=== PATIENT | male | born 1955 | race Caucasian/White ===

== ENCOUNTER 2017-02-19 07:10 | Emergency (ER) | payer OTHER ==
[2017-02-19 07:25] VITALS: BP 134/65
--- NOTE | 2017-02-19 07:54 | RAD ---
INDICATION: Right wrist injury. TECHNIQUE: 3 views of the right wrist were obtained. FINDINGS: The bones are in normal alignment. There are several small well-defined calcific densities present along the medial aspect of the wrist likely representing old fracture fragments or soft tissue calcifications. No acute fracture is seen. IMPRESSION: NO EVIDENCE FOR ACUTE FRACTURE, IF THE PATIENT'S SYMPTOMS PERSIST, RECOMMEND FOLLOW-UP IMAGING.
--- NOTE | 2017-02-19 07:57 | RAD ---
INDICATION: Right hand injury. TECHNIQUE: 2 views of the right hand were obtained. FINDINGS: The bones are in normal alignment. No fracture is seen. Joint spaces appear maintained. IMPRESSION: NO EVIDENCE FOR ACUTE FRACTURE.
--- NOTE | 2017-02-19 09:25 | UC ---
Hand/Wrist HPI - HPI Summary HPI Summary: pt was walking to the mail box this morning when his foot slipped on a rock and fell on a outstretched right hand. He rates pain as 5/10 ache, nonradiating. No n/w/t. Denies hitting his head or pain anywhere else. Denies any other new sx. - History Of Current Complaint Chief Complaint: UCUpperExtremity Stated Complaint: LEFT HAND INJ Time Seen by Provider: 02/19/17 07:24 Hx Obtained From: Patient Onset/Duration: Sudden Onset, Lasting Hours, Still Present Severity Initially: Moderate Severity Currently: Moderate Pain Intensity: 5 Character Of Pain: Aching Aggravating Factor(s): Movement, Other - touch Alleviating Factor(s): Rest, Elevation Associated Signs And Symptoms: Positive: Swelling, Bruising. Negative: Redness , Fever, Weakness, Numbness/Tingling - Allergies/Home Medications Allergies/Adverse Reactions: Allergies Allergy/AdvReac Type Severity Reaction Status Date / Time No Known Allergies Allergy Verified 02/19/17 07:25 Home Medications: Home Medications Lisinopril/HCTZ (NF) [Zestoretic (NF)] 1 tab PO DAILY 02/19/17 [ History Confirmed 02/19/17] Methadone TAB* [Dolophine TAB*] 5 mg PO TID 02/19/17 [History Confirmed 02/19/17 ] Warfarin TAB(*) [Coumadin TAB(*)] 9 mg PO DAILY 02/19/17 [History Confirmed ] traZODone TAB* [Desyrel TAB*] 50 mg PO BEDTIME 02/19/17 [History Confirmed 02/19] PMH/Surg Hx/FS Hx/Imm Hx Cardiovascular History: Hypertension, Deep Vein Thrombosis Respiratory History: COPD Other History Of: Negative For: HIV, Hepatitis B, Hepatitis C, Anticoagulant Therapy - Surgical History Surgical History: Yes Surgery Procedure, Year, and Place: Intestinal Perforation Repair, 07/31/14, [facility]. gastric bypass 2001. bilateral shoulders RTC AND TENDON REPAIR. CATARACT REPAIR - Family History Known Family History: Positive: Cardiac Disease, Hypertension, Diabetes - Social History Occupation: Retired Lives: With Family Alcohol Use: None Substance Use Type: None Smoking Status (MU): Heavy Every Day Tobacco Smoker Type: Cigarettes Amount Used/How Often: 1 PPD Length of Time of Smoking/Using Tobacco: 43 Years Have You Smoked in the Last Year: Yes When Did the Patient Quit Smoking/Using Tobacco: 07/30/14 Household Exposure Type: Cigarettes Cessation Counseling: Patient Advised to Stop - Immunization History Most Recent Influenza Vaccination: Not the Season Most Recent Tetanus Shot: 07/27/14 Review of Systems Constitutional: Negative Skin: Bruising Respiratory: Negative Cardiovascular: Negative Musculoskeletal: Other: - hand and wrist injury/pain Neurological: Negative All Other Systems Reviewed And Are Negative: Yes Physical Exam Triage Information Reviewed: Yes Appearance: Well-Appearing, No Pain Distress, Obese Vital Signs: Initial Vital Signs Temp 98.5 F 02/19/17 07:17 Pulse 64 02/19/17 07:17 Resp 16 02/19/17 07:17 BP 134/65 02/19/17 07:17 Pulse Ox 100 02/19/17 07:17 Vital Signs Reviewed: Yes Eyes: Positive: Conjunctiva Clear. Negative: Discharge ENT: Positive: Hearing grossly normal. Negative: Muffled voice, Hoarse voice Neck exam: Normal Respiratory: Positive: Lungs clear, Normal breath sounds Cardiovascular: Positive: RRR, No Murmur Musculoskeletal: Positive: Other: - swelling and bruising, tender carpals( including snuff box), dis ulna/rad, metatarsals 2-4, prox phalanx 3 Neurological: Positive: Alert, Muscle Tone Normal Psychological: Positive: Age Appropriate Behavior Skin: Positive: Other - bruising on rt hand Hand/Wrist Course/Dx - Differential Dx/Diagnosis Differential Diagnosis/HQI/PQRI: Contusion, Fracture, Sprain, Strain Provider Diagnoses: wrist injury, r/o snuff box fx Discharge - Discharge Plan Condition: Stable Disposition: HOME Patient Education Materials: Wrist Injury (ED), Contusion in Adults (ED), Splint Care (ED), Suspected Fracture (ED) Referrals: Khris Kohler MD [Medical Doctor] - (FOLLOW UP IN 5-7 DAYS) Katie Davalos MD [Primary Care Provider] - If Needed Additional Instructions: Your history and exam is suspicous for possible occult fracture of the scaphoid bone. This is a fracture that can have a bad outcome if not properly immobilized. So, we will treat this as a fracture until proven otherwise. That means that you must wear the splint 24 hours a day until the ortho provider tells you otherwise. It will take 5-7 days to establish whether or not your bone is fractured.
== END 2017-02-19 08:25 | disposition home or self-care (01) ==
LOC: UCCORT 07:10
DX: S69.91XA Unspecified injury of right wrist, hand and finger(s), initial encounter (principal); S60.221A Contusion of right hand, initial encounter; W01.0XXA Fall on same level from slipping, tripping and stumbling without subsequent striking against object, initial encounter; Y93.01 Activity, walking, marching and hiking; Y92.89 Other specified places as the place of occurrence of the external cause; I10 Essential (primary) hypertension; Z86.718 Personal history of other venous thrombosis and embolism; Z79.01 Long term (current) use of anticoagulants; J44.9 Chronic obstructive pulmonary disease, unspecified; Z98.84 Bariatric surgery status; E66.9 Obesity, unspecified; F17.210 Nicotine dependence, cigarettes, uncomplicated
CPT/HCPCS: 99212; G0463

== ENCOUNTER 2017-07-05 07:02 | Emergency (ER) | payer OTHER ==
[2017-07-05 07:19] VITALS: BP 137/58
--- NOTE | 2017-07-05 07:28 | UC ---
Throat Pain/Nasal Saroj HPI - HPI Summary HPI Summary: Sore throat, cough, congestion, right sinus pressure, right ear pressure for about three days. No fever. there is some yellow and green production. - History of Current Complaint Chief Complaint: UCRespiratory Stated Complaint: ST/EAR COMPLAINT Time Seen by Provider: 07/05/17 07:19 Hx Obtained From: Patient Onset/Duration: Gradual Onset, Lasting Days Severity: Moderate Pain Intensity: 0 Cough: Productive Associated Signs & Symptoms: Positive: Dysphagia, Sinus Discomfort. Negative: Fever, Vomiting, Rash - Allergies/Home Medications Allergies/Adverse Reactions: Allergies Allergy/AdvReac Type Severity Reaction Status Date / Time No Known Allergies Allergy Verified 07/05/17 07:10 PMH/Surg Hx/FS Hx/Imm Hx Previously Healthy: No - denies dm. Other History Of: Negative For: HIV, Hepatitis B, Hepatitis C, Anticoagulant Therapy - Surgical History Surgical History: Yes Surgery Procedure, Year, and Place: Intestinal Perforation Repair, 07/31/14, [facility]. gastric bypass 2001. bilateral shoulders RTC AND TENDON REPAIR. CATARACT REPAIR - Family History Known Family History: Positive: Cardiac Disease, Hypertension, Diabetes - Social History Alcohol Use: None Substance Use Type: None Smoking Status (MU): Former Smoker Type: Cigarettes Amount Used/How Often: 1 PPD Length of Time of Smoking/Using Tobacco: 43 Years Have You Smoked in the Last Year: Yes When Did the Patient Quit Smoking/Using Tobacco: 03/20/17 Household Exposure Type: Cigarettes - Immunization History Most Recent Influenza Vaccination: Not the 2014/2015 Season Most Recent Tetanus Shot: 07/27/14 Review of Systems ENT: Sore Throat, Sinus Congestion All Other Systems Reviewed And Are Negative: Yes Physical Exam Triage Information Reviewed: Yes Appearance: Well-Appearing, No Pain Distress, Well-Nourished Vital Signs: Initial Vital Signs Temp 99.4 F 07/05/17 07:11 Pulse 75 07/05/17 07:11 Resp 20 07/05/17 07:11 BP 137/58 07/05/17 07:11 Pulse Ox 98 07/05/17 07:11 Vital Signs Reviewed: Yes Eyes: Positive: Conjunctiva Clear. Negative: Conjunctiva Inflamed ENT: Positive: Hearing grossly normal, Pharyngeal erythema, Nasal congestion, TMs normal, Hoarse voice, Uvula midline. Negative: Nasal drainage, TM bulging, TM dull, TM red, Tonsillar swelling, Tonsillar exudate, Trismus, Muffled voice, Sinus tenderness Neck: Positive: Supple, Nontender, No Lymphadenopathy Respiratory: Positive: Lungs clear, Normal breath sounds, No respiratory distress, No accessory muscle use. Negative: Respiratory distress, Decreased breath sounds, Accessory muscle use, Crackles, Rhonchi, Stridor, Wheezing Cardiovascular: Positive: No Murmur, Pulses Normal, Brisk Capillary Refill Abdomen Description: Positive: Soft. Negative: Distended, Guarding Musculoskeletal: Positive: ROM Intact, No Edema Neurological: Positive: Alert, Muscle Tone Normal. Negative: Fatigued Psychological: Positive: Age Appropriate Behavior Skin: Negative: rashes Throat Pain/Nasal Course/Dx - Course Assessment/Plan: he will hold on to amoxacillin for 6 more days before trying it. He will focus on decongestants first. - Differential Dx/Diagnosis Provider Diagnoses: viral uri Discharge - Sign-Out/Discharge Documenting (check all that apply): Discharge - Discharge Plan Condition: Good Disposition: HOME Prescriptions: Amoxicillin PO (*) [Amoxicillin 875 MG (*)] 875 mg PO BID #20 tab Patient Education Materials: Upper Respiratory Infection (ED) Referrals: Jamir Botello [Primary Care Provider] - - Billing Disposition and Condition Condition: GOOD Disposition: HOME
== END 2017-07-05 07:30 | disposition home or self-care (01) ==
LOC: UCCORT 07:02
DX: J06.9 Acute upper respiratory infection, unspecified (principal)
CPT/HCPCS: 99212; G0463

== ENCOUNTER 2017-09-14 08:00 | Inpatient (IN) | payer OTHER ==
--- NOTE | 2017-09-04 10:32 | HP ---
HISTORY AND PHYSICAL: DATE OF SURGERY: 09/14/17 DATE OF OFFICE VISIT: 09/04/17 SURGEON: Lo Oliva MD * (DICTATED BY DANNI MEJIA) PROCEDURE: Left total knee arthroplasty. CHIEF COMPLAINT: Left knee pain. HISTORY OF PRESENT ILLNESS: Mr. Nazario is a 62-year-old gentleman with end- stage osteoarthritis of the left knee. He has failed conservative management and elected to proceed with a left total knee arthroplasty, which is scheduled for 09/14/[address] Oliva. PAST MEDICAL HISTORY: 1. AFib. 2. Hypertension. 3. DVT. 4. Chronic pain. 5. Prior stroke. 6. Obesity. 7. Sleep apnea. PAST SURGICAL HISTORY: 1. Gastric bypass 2. Bilateral shoulder arthroscopies and cataract removal. CURRENT MEDICATIONS: 1. Lisinopril/hydrochlorothiazide 20/25 mg daily. 2. Warfarin sodium. 3. Methadone 5 mg. 4. Lactulose. 5. Trazodone 50 mg q.h.s. ALLERGIES: None. FAMILY HISTORY: Diabetes, coronary artery, hypertension, stroke, cancer, and Alzheimer's. SOCIAL HISTORY: He is a 62-year-old gentleman, lives with his and children. He smokes half a pack a day. Denies use of drugs and alcohol. REVIEW OF SYSTEMS: A complete 14-point of review of systems is reviewed with the patient, it was positive for history of stroke and DVT. The last DVT was approximately 3 years ago. He denies a history of hepatitis, HIV, or anesthesia problems. PHYSICAL EXAMINATION GENERAL: He is well developed, well nourished, in no acute distress. VITAL SIGNS: He stands 72 inches tall, weighs 320 pounds. Blood pressure is 118/70, heart rate is 60. HEENT: Normocephalic, atraumatic. NECK: Supple. No palpable lymph nodes. PULMONARY: Lungs are clear to auscultation bilaterally. CARDIO: Regular rate and rhythm. Strong S1, S2. ABDOMEN: Soft, nontender, and nondistended. NEUROLOGIC: He is alert and oriented x3. Cranial nerves II through XII are intact. MUSCULOSKELETAL: Left lower extremity, the skin is intact. There are no open wounds or abrasions. There is some moderate joint effusion. Range of motions 10 to 125 degrees of flexion. There is a varus deformity. 5/5 lower extremity strength. 2+ dorsalis pedis pulses and intact sensation. ASSESSMENT AND PLAN: Mr. Nazario is a 62-year-old gentleman with complaints of left knee pain secondary to end-stage osteoarthritis. He has failed conservative management and elected to proceed with a left total knee arthroplasty, the surgery is scheduled for 09/14/[address] Oliva discussed the risks and benefits of the surgery at today's visit and all his questions were answered. He will follow with Dr. Oliva in weeks after the surgery. Dr. Oliva has instructed him to stop his Coumadin on 09/07/17. He will start Lovenox injection 40 mg subcu daily, starting on 09/09/17. His last dose of Lovenox will be 09/12/17 and the surgery is scheduled for 09/14/17. DANNI MEJIA [id number]/[facility] #: [id number] [facility] HEALTH NETWORKDanie
[~2017-09-14 08:00] MED LIST: Buffered Lidocaine 0.9% SYRIN* 5 ML/SYR SYRINGE INTRADERM ONE; Dexamethasone TAB* 4 MG PO ONE; DiMENhydriNATE IV* 50 MG/ML VIAL IV PUSH PRN; Famotidine IV* 10 MG/ML 2 ML (20 mg) IV ONE; Gabapentin CAP(*) 300 MG PO ONE; HYDROmorphone INJ* 1 MG/ML CARPUJECT SYRINGE IV PRN; Naloxone* 0.4 MG/ML 1 ML VIAL IV PRN; Ondansetron INJ* 2 MG/ML VIAL ONE; PROCHLORPERAZINE INJ 5 MG/ML 2 ML VIAL IV PRN
--- OUTSIDE RECORDS SUMMARY | 2017-09-14 08:04 | XMS REPORT ---
:1955 External Reference #:[id number] Author Organization [employer] Address [address] [place] [address] [place] [address] Phone [phone] Care Team Providers Name Role Phone Jamir Botello PA-C Primary Care Physician Unavailable Payers Type Date Identification Numbers Payment Provider Subscriber Commercial Expires: Policy Number: [id number] RatifyShaquille Vane Dwyerclaudiatoyindelroy 2016 PayID: [employer] [address] [place] [address] Commercial Policy Number: [id number] Lif[employer]it [employer] Vane Nazario PayID: [facility] [address] [place] [address] Problems Date Description Provider Status Onset: 07/18/2016 Disorder of lung Serena Ellis MD Active Onset: 07/18/2016 Dyspnea Serena Ellis MD Active Onset: 08/09/2017 Localized, primary osteoarthritis Lo Oliva M.D. Active Social History Type Date Description Comments Marital Status Lives With Spouse Occupation Disabled ETOH Use Denies alcohol use Smoking Patient is a current smoker, smokes every day Recreational Drug Use Denies Drug Use Exercise Type/Frequency Exercises regularly Allergies, Adverse Reactions, Alerts Date Description Reaction Status Severity Comments 09/04/2017 NKDA active Medications Medication Date Status Form Strength Qnty SIG Indications Ordering Provider Lovenox Active Solution 40mg/0.4ML 12ml sub Q Lo 018 once a Pj, day for 4 M.D. days ( 09/09-09/12 ) Trazadone Active Lo 50MG 018 Seth Oliva Lisinopril-Hy Active Tablets 20-25mg 1 tablet Serena drochlorothia 017 daily MD Caleb zide Amlodipine Active Tablets 5mg 30tabs 1 by Serena Besylate 017 mouth MD Caleb every day Furosemide Active Tablets 40mg 1 tablet Serena 017 daily MD Caleb Warfarin Active Tablets 10mg 1 tablet Serena Sodium 017 at night MD Caleb Methadone 5MG Active Unknown 000 Lactulose Active Unknown 000 Vital Signs Date Vital Result Comment 09/04/2017 Height 72 inches 6'0" Weight 320.00 lb Heart Rate 76 /min BP Systolic 118 mmHg BP Diastolic 70 mmHg BMI (Body Mass Index) 43.4 kg/m2 07/18/2016 Height 72 inches 6'0" Weight 347.00 lb Heart Rate 72 /min BP Systolic 125 mmHg BP Diastolic 70 mmHg Body Temperature 98.0 F O2 % BldC Oximetry 97 % BMI (Body Mass Index) 47.1 kg/m2 Results Test Date Test Result H/L Range Note Laboratory test finding 07/28/2016 Point of Care Glucose 89 mg/dL 74-106 1 1 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 64658 M17.0 C.M.A. M21.162 E66.01 M25.561 M25.562 M25.461 M25.462 Office Visit 07/18/2016 7:30a [facility] [address] J98.4 [facility] R06.02 G47.33 F17.210 E66.01 Z68.42 Plan of Care Future Appointment(s):09/29/2017 8:15 am - Lo Oliva M.D. at [facility]..09/14/2017 2:30 pm - Aj Miller PA-C at [facility]..09/14/2017 2:30 pm - DANNI Ruelas at [facility]..09/14/2017 2:30 pm - Lo Oliva M.D. at [facility]..09/22/2017 8:00 am - Lo Oliva M.D. at [facility]..09/04/2017 - Lo Oliva M.D.M17.0 Bilateral primary osteoarthritis of kneeFollow up:Follow up: 2 weeks after nrzlwrrY57.462 Effusion, left kneeM25.562 Pain in left knee
[2017-09-14] MEDS ORDERED: Gabapentin CAP(*) 300 MG ONE (08:11)
[2017-09-14] MEDS ORDERED: Ondansetron ODT TAB* 4 MG ONE (08:11)
[2017-09-14] MEDS ORDERED: Famotidine IV* 10 MG/ML 2 ML (20 mg) ONE (08:11)
[2017-09-14] MEDS ORDERED: ceFAZolin 2 GM PREMIX (*) 2 GM/50 ML BAG IVPB ONE (08:12)
[2017-09-14] MEDS ORDERED: ceFAZolin 1 GM in Dextrose (*) 1 GM/50 ML BAG IVPB ONE (08:12)
[2017-09-14] MEDS ORDERED: Dexamethasone TAB* 4 MG ONE (08:12)
[2017-09-14] MEDS ORDERED: Buffered Lidocaine 0.9% SYRIN* 5 ML/SYR SYRINGE ONE (08:12)
[2017-09-14] MEDS ORDERED: fentaNYL* 50 MCG/ML 5 ML VIAL (250 MCG VIAL) ONE ×2 (08:29→10:38)
[2017-09-14] MEDS ORDERED: Midazolam* 1 MG/ML 10 ML VIAL (10 MG) ONE (08:29)
[2017-09-14 09:06] LABS: INR 0.98 (0.77-1.02)
[2017-09-14] MEDS ORDERED: Atracurium* 10 MG/ML 10 ML VIAL ONE (09:33)
[2017-09-14] MEDS ORDERED: HYDROmorphone INJ* 0.5 MG/0.5 ML SYRINGE ONE (11:17)
[2017-09-14] MEDS ORDERED: Bupivacaine 0.25% SDV* 30 ML ONE (11:18)
[2017-09-14] MEDS ORDERED: PROCHLORPERAZINE INJ 5 MG/ML 2 ML VIAL ONE (11:18)
[2017-09-14] MEDS ORDERED: Propofol* 10 MG/ML 20 ML BTL IV PUSH ONE (11:18)
[2017-09-14] MEDS ORDERED: Phenylephrine INJ* 10 MG/ML 1 ML VIAL (10 MG) ONE (11:18)
[2017-09-14] MEDS ORDERED: Bupivacaine 0.5% SDV PF* 30ML VIAL ONE (12:04)
[2017-09-14] MEDS ORDERED: Morphine VIAL* 4 MG/ML VIAL (1 ml vial) IV PRN (13:17)
[2017-09-14] MEDS ORDERED: oxyCODONE TAB* 5 MG TAB PO PRN (13:17)
[2017-09-14] MEDS ORDERED: Ondansetron INJ* 2 MG/ML VIAL IV PRN (13:17)
[2017-09-14] MEDS ORDERED: diPHENhydraMINE IV* 50 MG/ML 1 ml VIAL (BENADRYL) IV PRN (13:17)
[2017-09-14] MEDS ORDERED: Cyclobenzaprine TAB* 10 MG PO PRN (13:17)
[2017-09-14] MEDS ORDERED: Magnesium Hydroxide LIQ* 30 ML UDC PO PRN (13:17)
[2017-09-14] MEDS ORDERED: Bisacodyl SUPP* 10 MG SUPP PR PRN (13:17)
[2017-09-14] MEDS ORDERED: oxyCODONE/Acetamin 5/325 MG* TAB PO PRN (13:17)
[2017-09-14] MEDS ORDERED: Acetaminophen TAB* 325 MG PO PRN (13:17)
[2017-09-14] MEDS ORDERED: fentaNYL* 50 MCG/ML 2 ML VIAL (100 MCG VIAL) ONE (13:18)
[2017-09-14] MEDS ORDERED: HYDROmorphone INJ* 2 MG/ML CARPUJECT SYRINGE ONE (13:18)
[2017-09-14] MEDS: fentaNYL* 50 MCG/ML 2 ML VIAL (100 MCG VIAL) IV PRN ×2 (13:20→14:12)
--- NOTE | 2017-09-14 15:24 | RAD ---
HISTORY: s/p ltka COMPARISONS: August 09, 2017 VIEWS: 2, Frontal and lateral views of the left knee FINDINGS: BONE DENSITY: Normal. BONES: The patient is status post left knee arthroplasty. There is no hardware failure or osteolysis. JOINTS: The patient is status post left knee arthroplasty. ALIGNMENT: There is no dislocation. SOFT TISSUES: There is postsurgical changes to the soft tissues. OTHER FINDINGS: None. IMPRESSION: STATUS POST LEFT KNEE ARTHROPLASTY.
[2017-09-14] MEDS: oxyCODONE/Acetamin 5/325 MG* TAB PO PRN ×2 (15:35→19:58)
[2017-09-14] MEDS ORDERED: Warfarin TAB(*) 6 MG PO ONE (17:00)
[2017-09-14] MEDS: ceFAZolin 1 GM in Dextrose (*) 1 GM/50 ML BAG IVPB SCH (17:06)
[2017-09-14] MEDS ORDERED: Nicotine Inhaler* 10 MG AMP INH PRN (18:28)
[2017-09-14] MEDS ORDERED: Mouth Piece, Nicotine* 1 EACH CARTRIDGE INH PRN (18:28)
[2017-09-14] MEDS: Magnesium Hydroxide LIQ* 30 ML UDC PO SCH (19:58)
[2017-09-14] MEDS: Docusate CAP* 100 MG PO SCH (19:58)
[2017-09-15] MEDS: ceFAZolin 1 GM in Dextrose (*) 1 GM/50 ML BAG IVPB SCH ×2 (01:00→09:38)
--- NOTE | 2017-09-15 02:39 | CONS ---
CC: DANNI Marinelli; Dr. Lo Oliva * CONSULTATION REPORT: DATE OF CONSULT: 09/14/17 PRIMARY CARE PROVIDER: DANNI Marinelli ATTENDING PHYSICIAN: Dr. López Hathaway (dictated by Aimee Hutchinson NP) REASON FOR CONSULTATION: Co-medical management in a patient with a history of atrial fibrillation, hypertension, history of DVT, chronic pain, obesity, obstructive sleep apnea, MAIKOL, peptic ulcer disease and history of CVA. HISTORY OF PRESENT ILLNESS: Mr. Nazario is a 62-year-old male with a past medical history significant for atrial fibrillation, hypertension, chronic DVT, chronic pain, obesity, obstructive sleep apnea, iron-deficiency anemia, peptic ulcer disease and history of CVA who failed conservative management of left knee osteoarthritis. The patient is status post an elective left total knee arthroplasty with Dr. Lo Oliva today. Preoperatively, the patient states he was in his usual state of health. Denies any recent fevers, chills, chest pain, shortness of breath, nausea, vomiting, diarrhea. Postoperatively, the patient states he is feeling well and that his pain is controlled. The hospitalists were asked to assist with co-medical management of this patient during his hospitalization. PAST MEDICAL HISTORY: 1. Atrial fibrillation. 2. Hypertension. 3. Chronic DVT. 4. Chronic pain. 5. Morbid obesity. 6. Obstructive sleep apnea. 7. Iron-deficiency anemia. 8. Peptic ulcer disease. 9. Cerebrovascular accident. PAST SURGICAL HISTORY: 1. Status post Nathan-en-Y gastric bypass. 2. Status post bilateral shoulder arthroplasties. 3. Status post bilateral cataract extractions. 4. Status post cardiac catheterization in 2002 with normal coronaries. 5. Status post shoulder replacement. HOME MEDICATIONS: Include: 1. Lisinopril/hydrochlorothiazide 20/25 one tab oral daily. 2. Warfarin 9 mg oral daily. 3. Methadone 5 mg oral in the morning and evening and 10 mg at bedtime. 4. Lactulose 30 mL oral twice daily as needed for constipation. 5. Trazodone 50 mg oral daily at bedtime. 6. Vitamin B12 1000 mcg oral daily. ALLERGIES: No known drug allergies. FAMILY HISTORY: The patient's paternal grandfather had an WI in his 50s. His father had a WI in his 70s. Father also has a history of Alzheimer's disease and mother with congestive heart failure in her 70s. He denies any family history of diabetes or cancer. SOCIAL HISTORY: The patient is a current smoker smoking approximately half a pack a day. He denies any alcohol or recreational drug use. He lives with his . His , Vane Nazario, will be his surrogate decision maker in the event he is unable to make decisions for himself. REVIEW OF SYSTEMS: I performed an 11-point review of systems. All the pertinent positives and negatives are mentioned in the history of present illness. The remaining review of systems is negative. PHYSICAL EXAMINATION: Vital Signs: Temperature 98.0, heart rate 68, respiratory rate 16, O2 sat 99% on 2 L via nasal cannula, blood pressure 151/ 76. General Appearance: The patient is alert, pleasant, appears to be in no acute distress. HEENT: Normocephalic, atraumatic. Pupils are equal and reactive to light. Extraocular movements are intact. Respiratory: There is no accessory muscle use. The lungs are clear to auscultation, bilateral. Cardiovascular: Regular rate and rhythm. S1, S2 present. There are no murmurs , rubs or gallops heard. Abdomen: Soft, large, nontender, nondistended. There are bowel sounds present x4. Extremities: There is no lower extremity edema. DP and PT pulses are 2+ and symmetric. Musculoskeletal: There is no clubbing or cyanosis noted. The patient exhibits good strength in all extremities. Neurological: The patient is alert and oriented x4. Cranial nerves II through XII are grossly intact. Psychological: The patient is calm and cooperative. Skin: There are no rashes or abnormalities seen. The patient has a dressing to his left knee that is clean, dry and intact. IMPRESSION: Mr. Nazario is a 62-year-old male with a past medical history significant for atrial fibrillation, hypertension, chronic deep venous thrombosis, chronic pain, morbid obesity, obstructive sleep apnea, iron- deficiency anemia, peptic ulcer disease and cerebrovascular accident who presents to the hospital today for an elective left total knee arthroplasty with Dr. Lo Oliva. He will be admitted as an inpatient. The hospitalists were asked to assist with co-medical management of this patient during his hospitalization. ASSESSMENT/PLAN: 1. Status post left total knee arthroplasty. Post op day. Management will be per Orthopedic Surgery. We will trend his H and H. He will have urinary catheter in place until the morning. He will be seen by Physical Therapy and Occupational Therapy tomorrow. He will be placed on a pain management regimen per Orthopedic Surgery and a bowel regimen. 2. History of pulmonary embolism and chronic lower extremity deep vein thrombosis. The patient will be continued on warfarin with a Lovenox bridge. The patient should follow up with outpatient vascular as previously planned for his chronic lower extremity deep vein thrombosis. 3. Hypertension. The patient has been normotensive to slightly hypertensive postoperatively. As long as his pressures remain stable, he will be continued on his home lisinopril and hydrochlorothiazide in the morning. 4. Tobacco abuse. The patient was recently started on Chantix by his PCP. He states that he is unable to afford this. He is declining any nicotine replacement at this time. I will order nicotine inhaler as needed incase he changes his mind. He has been encouraged to stop smoking. 5. Obstructive sleep apnea. The patient states that he does not use his CPAP and he will be monitored on capnography overnight and have supplemental oxygen as needed. 6. Chronic pain. The patient takes methadone at home. For now, I am going to hold his methadone and see how he does with the oxycodone that Orthopedic Surgery has prescribed for pain management. 7. Iron-deficiency anemia. We will follow the patient's H and H postoperatively. 8. History of cerebrovascular accident. The patient is not currently on any aspirin, Plavix or statin. 9. Morbid obesity. The patient's BMI is 42.7. 10. History of paroxysmal atrial fibrillation. The patient's heart rate is regular at this time. He is not currently on a rate-control agent. He will be continued on warfarin. 11. Fluids, electrolytes and nutritions. The patient will be on a regular diet. 12. Code status. Full code. 13. DVT prophylaxis. The patient will be on Lovenox bridge to warfarin per Orthopedic Surgery. 14. Disposition. Inpatient with disposition per Orthopedic Surgery. TIME SPENT: Time for this consultation was approximately 60 minutes, greater than half of that was spent with the patient discussing medications, past medical history, the events leading up to his arrival today, performing a physical examination. Reviewed by NINO WRIGHT 09/28/17 1411 [id number]/[facility] #: [id number] ROGER
[2017-09-15] MEDS: oxyCODONE/Acetamin 5/325 MG* TAB PO PRN ×3 (03:07→11:26)
[2017-09-15 05:54] LABS: INR 1.14 (0.77-1.02)
[2017-09-15 06:04] LABS: EGFR Non-African American 110.3 (>60)
[2017-09-15 06:07] LABS: Hematocrit 33 % (42-52); Hemoglobin 11.3 g/dl (14.0-18.0)
[2017-09-15 06:49] LABS: Platelet Count 183 10^3/ul (150-450)
[2017-09-15 06:53] LABS: Mean Platelet Volume 8.4 um3 (7.4-10.4)
[2017-09-15 08:12] VITALS: BP 152/81
[2017-09-15] MEDS ORDERED: Vitamin THERAPEUTIC TAB PO SCH (09:00)
[2017-09-15] MEDS ORDERED: Potassium Chlor TAB* 20 MEQ TAB.ER PO SCH (09:00)
[2017-09-15] MEDS: Docusate CAP* 100 MG PO SCH (09:26)
[2017-09-15] MEDS: Magnesium Hydroxide LIQ* 30 ML UDC PO SCH (09:27)
--- NOTE | 2017-09-15 10:49 | PN ---
Progress Note - Progress Note Date of Service: 09/15/17 SOAP: Subjective: POD #1 Left TKA, doing very well. Would like to be d/c'd home today. Has been able to walk with PT, use stairs comfortably. Denies CP/SOB, f/c, calf pain. Objective: Vitals: Temp Pulse Resp BP Pulse Ox 98.1 F 63 18 152/81 100 09/15/17 07:25 09/15/17 07:25 09/15/17 10:00 09/15/17 07:25 09/15/17 08:00 Gen: A&Ox3, NAD at rest sitting in chair LLE: Dressing C/D/I, calf and thigh soft, NT. +f/e at ankle and MTPs. N/V intact Labs: Laboratory Results - last 24 hr 09/15/17 09/15/17 09/15/17 05:35 05:35 05:35 Hgb 11.3 L Hct 33 L Plt Count 183 MPV 8.4 INR (Anticoag Therapy) 1.14 H Sodium 139 Potassium 3.3 L Chloride 103 Carbon Dioxide 28 Anion Gap 8 BUN 14 Creatinine 0.72 Est GFR ( Amer) 133.4 Est GFR (Non-Af Amer) 110.3 BUN/Creatinine Ratio 19.4 Glucose 111 H Calcium 8.3 L Assessment: POD #1 Left TKA, doing well Plan: D/C home today VNS for wound care, home PT INR 1.14 today, 6mg tonight F/U with Dr. Oliva 10-14 days
[2017-09-15] MEDS ORDERED: Enoxaparin(*) 40 MG/0.4 ML SYR SUBCUT SCH (12:00)
--- NOTE | 2017-09-16 03:48 | OP ---
OPERATIVE REPORT: DATE OF OPERATION: 09/14/17 DATE OF : 53 SURGEON: Lo Oliva MD TRAIN CONDUCTOR: DANNI Martins Paul did help throughout the procedure with preparation of the leg, wound retraction, manipulat ion of the knee, and wound closure. ANESTHESIOLOGIST: Dr. Davila. ANESTHESIA: Spinal. PRE-OP DIAGNOSIS: Severe end-stage degenerative osteoarthritis of the left knee joint. POST-OP DIAGNOSIS: Severe end-stage degenerative osteoarthritis of the left knee joint. OPERATIVE PROCEDURE: Left total knee arthroplasty. COMPLICATIONS: None. TOURNIQUET TIME: 61 minutes. SPECIMENS: Bone and cartilage from the left knee joint sent to pathology. HARDWARE USED: This is [employer] cemented total knee arthroplasty hardware. Two packages of S implex bone cement were used. For the femur, a left size 6 posterior stabilized Legion Oxinium femor al component. For the tibia, a size 6 left tibial baseplate. For the insert, a 9-mm size 5/6 cement fittings maker ior stabilized articular insert, and for the patella, 35-mm 3-peg all poly patella. BRIEF HISTORY/INDICATIONS: Mr. Nazario is a 62-year-old gentleman with years of increasingly sever e left knee pain. He failed conservative treatment with anti- inflammatories, pain medications, intr aarticular injections and physical therapy. He elected to undergo left total knee arthroplasty due to continued pain and decreased quality of life. Radiograph confirmed aaea-fs-depm arthritis. Informed consent was obtained from the patient. He understood the risks of surgery included, but wer e not limited to, bleeding, infection, damage to nearby structures, continued pain, need for further surgery, intraoperative fracture, nerve palsy, hardware failure or loosening, knee stiffness, loss of motion, stroke, heart attack, blood clot and . He wished to proceed. INTRAOPERATIVE FINDINGS: Intraoperatively, the patient had extensive osteophyte formation around the entire femur and patella. He had tricompartmental loss of cartilage which was quite severe. DESCRIPTION OF PROCEDURE: Mr. Nazario was identified in the preanesthesia unit. His left lower ext remity was marked as the correct operative side. Informed consent was signed and placed in the chart . The patient was taken to the operating room and placed under spinal anesthesia. Tourniquet was pl aced on the left thigh. Left lower extremity was prepped and draped in the usual sterile fashion. Pr eop time-out was made to correctly identify the patient's side and site. Appropriate perioperative a ntibiotics were given within 1 hour of incision. A straight midline incision was made with a 10 blade and carried down to the extensor mechanism. A n ew 10-blade was used to make a standard medial parapatellar arthrotomy. The patella was subluxed lat erally. Electrocautery was used to subperiosteally elevate soft tissue off the superomedial tibia to the midsagittal plane. The knee was flexed up. The anterior horn of the lateral meniscus and ACL w ere sharply released. A drill was used to enter the distal femur. Intramedullary distal femoral cut ting guide was pinned on the distal femur. Distal femur was sized to a size 6. Size 6 multi-cutting jig was pinned on the distal femur. The oscillating saw was used to make the appropriate 4 chamfer cuts. The PCL was completely released. Tibia was subluxed anteriorly. Extramedullary tibial cutting guide was pinned on the proximal tibia. Oscillating saw was used to make the proximal tibial cut perpendi cular to the mechanical axis of the tibia. The bone was carefully removed. The knee was brought out into full extension. The spacer block had excellent fit with the knee in full extension. Medial and lateral ligaments were well balanced. Flexion and extension gaps were well balanced. The knee was flexed up. Lamina [employer] education [employer] teacher was placed both medially and laterally. Any remaining meniscus was caref ully removed using electrocautery. Curved osteotome was used to remove any posterior osteophytes. T ibial tray and drop bridget were placed to once again confirm a satisfactory tibial cut. This was confir med. A size 6 left femoral trial was impacted on to the distal femur and had excellent fit. The box for the posterior stabilized implant was prepared using the reamer and box cut osteotome. The size 6 tibial tray trial with a 9-mm insert trial was placed and the knee was taken through a range of mot ion. The knee had full extension to 120 degrees of flexion. Flexion was limited only by the patient 's body habitus. The patella was everted. A 9-mm of patellar bone and cartilage were carefully itzel nya using an oscillating saw. The patella was sized to a size 35. The 3 peg holes were drilled thro [facility] the size 35 guide. A 35 trial patella was placed and the knee was taken through a range of motio n. There was satisfactory patellofemoral tracking. All trials were carefully removed. The tibia was subluxed anteriorly and sized to a size 6. Proxima l tibia was prepared using a size 6 keel punch. All bony cut surfaces were copiously irrigated with sterile saline and dried. Final implants were cemented into place starting with the tibia followed b y the femur and lastly the patella. A 9-mm insert trial was placed and the knee was brought out into full extension. Tourniquet was turned down at 61 minutes. The knee was copiously irrigated with st erile saline. Electrocautery was used to obtain meticulous hemostasis. Once the cement had fully cu red, the insert trial was removed. Any excess cement was removed from around the capsule and hardwar e. Final implant chosen was a 9-mm posterior stabilized articular insert size 5/6 Ana Paula II. This was locked into position on the tibial tray. Stability of the insert was checked and rechecked and n oted to be stable. The knee was once again copiously irrigated with sterile saline. Extensor mechanism was closed over a medium Hemovac drain using interrupted #1 Vicryl. The rest of the incisions was closed in a layere d fashion using 0 and 2-0 Vicryl. Skin was closed using running 3-0 nylon suture. Sterile Xeroform, 4x4s and Webril were used to cover the incision. Caleb wrap and cold pack were placed over this. The patient's anesthesia was reversed without difficulty. He was taken to the PACU in stable condition. Intended weightbearing will be weightbearing as tolerated. Intended DVT prophylaxis will be Coumadi n with a Lovenox bridge. [id number]/[facility] #: [id number]
--- NOTE | 2017-09-23 11:18 | DS ---
AMENDED REPORT NOW INCLUDES COSIGNER DESIGNATION - ESIGNED BEFORE ADJUSTMENT DISCHARGE SUMMARY: DATE OF ADMISSION: 09/14/17 DATE OF DISCHARGE: 09/15/17 ATTENDING PROVIDER: Lo Oliva MD.* (DICTATED BY DANNI MORRISON) ADMITTING DIAGNOSIS: Severe end-stage osteoarthritis of the left knee. DISCHARGE DIAGNOSIS: Severe end-stage osteoarthritis of the left knee, status post left total knee arthroplasty. SECONDARY DIAGNOSES: 1. Atrial fibrillation. 2. Hypertension. 3. Deep vein thrombosis. 4. Chronic pain. 5. History of cerebrovascular accident. 6. Obesity. 7. Sleep apnea. HISTORY OF PRESENT ILLNESS: Mr. Nazario is a 62-year-old gentleman who had end- stage osteoarthritis of the left knee and failed conservative management. He elected to proceed with a left total knee arthroplasty. HOSPITAL COURSE: On 09/14/17, the patient was admitted to [facility] and underwent a successful left total knee arthroplasty by Dr. Oliva. He recovered briefly in the postanesthesia care unit and was transferred to the short-stay surgical unit in stable condition. On postop day 1, the patient was able to ambulate with physical therapy and traverse stairs without difficulty. His pain was controlled with oral Percocet only and the patient was interested in discharge home. He had an H and H of 11.3 and 33. His INR was 1.14 with 6 mg of Coumadin previously. DISCHARGE MEDICATIONS: The patient will continue to use Percocet 5/325 mg 1 to 2 tabs p.o. q.4 to 6 hours p.r.n. pain. The patient will resume his home medication of: 1. Trazodone 50 mg p.o. q.h.s. 2. Coumadin 9 mg p.o. q.h.s. 3. Lisinopril/HCTZ 20/25 mg 1 tab p.o. b.i.d. 4. Lactulose 15 mg p.o. q.a.m. p.r.n. constipation. 5. Flexeril 5 mg p.o. t.i.d. p.r.n. spasms. DISCHARGE INSTRUCTIONS: The patient will be weightbearing as tolerated with the use of the rolling walker. He will have home physical therapy and visiting nurse for INR checks, although the patient does have an INR machine at his house as he was on Coumadin prior to surgery. He will follow up in the office 10 to [address] Oliva. He will apply a dry dressing as needed and wash the wound with soap and water. He is understanding not to submerge the incision in a bathtub, hot tub or swimming pool. He will call the office with any problems or concerns or go directly to the emergency room with any chest pain, shortness of breath, fever greater than 101.5, calf pain or swelling. DANNI MORRISON [id number]/[facility] #: [id number] ROGER
== END 2017-09-15 14:25 | disposition home health service (06) | DRG 302 ==
LOC: AA 08:00 → SSU 15:13
PROVIDERS: ADMIT Orthopaedic Surgery Adult Reconstructive Orthopaedic Surgery; ATTEND Orthopaedic Surgery Adult Reconstructive Orthopaedic Surgery
PROC: 0SRD069 Replacement of Left Knee Joint with Oxidized Zirconium on Polyethylene Synthetic Substitute, Cemented, Open Approach (ICD-10-PCS; principal; 2017-09-14 11:00)
DX: M17.0 Bilateral primary osteoarthritis of knee (principal); F33.1 Major depressive disorder, recurrent, moderate; Z68.41 Body mass index [BMI] 40.0-44.9, adult; I10 Essential (primary) hypertension; G89.29 Other chronic pain; F17.210 Nicotine dependence, cigarettes, uncomplicated; M21.162 Varus deformity, not elsewhere classified, left knee; G47.33 Obstructive sleep apnea (adult) (pediatric); Z96.612 Presence of left artificial shoulder joint; Z96.611 Presence of right artificial shoulder joint; E66.01 Morbid (severe) obesity due to excess calories; J44.9 Chronic obstructive pulmonary disease, unspecified; I45.10 Unspecified right bundle-branch block; M54.12 Radiculopathy, cervical region; M25.462 Effusion, left knee; M54.30 Sciatica, unspecified side; N40.1 Benign prostatic hyperplasia with lower urinary tract symptoms; M25.762 Osteophyte, left knee; I48.0 Paroxysmal atrial fibrillation; D50.9 Iron deficiency anemia, unspecified; Z86.711 Personal history of pulmonary embolism; Z87.11 Personal history of peptic ulcer disease; Z86.73 Personal history of transient ischemic attack (TIA), and cerebral infarction without residual deficits; Z98.84 Bariatric surgery status; Z86.718 Personal history of other venous thrombosis and embolism; Z80.9 Family history of malignant neoplasm, unspecified; Z83.3 Family history of diabetes mellitus; Z82.3 Family history of stroke; Z82.49 Family history of ischemic heart disease and other diseases of the circulatory system; Z82.0 Family history of epilepsy and other diseases of the nervous system; Z98.42 Cataract extraction status, left eye; Z98.41 Cataract extraction status, right eye; Z81.8 Family history of other mental and behavioral disorders
CPT/HCPCS: 36415; 80048; 85014; 85018; 85049; 85610; 88305; 88311; A9270-GY; C1776; G8978-GP-CI; G8979-GP-CI; G8980-GP-CI; G8987-GO-CI; G8988-GO-CI; G8989-GO-CI; J0690; J0780; J1170; J1650; J2250; J2704; J3010; J8540

== ENCOUNTER 2017-09-29 11:01 | Emergency (ER) | payer OTHER ==
--- OUTSIDE RECORDS SUMMARY | 2017-09-29 11:13 | XMS REPORT ---
:1955 External Reference #:[id number] Author Organization [employer] [employer] Address [address] [place] [address] [place] [address] Phone [phone] Care Team Providers Name Role Phone Jamir Botello PA-C Primary Care Physician Unavailable Payers Type Date Identification Numbers Payment Provider Subscriber Commercial Expires: Policy Number: [id number] righTuneShaquille Vane Gonzalesrafael 2016 PayID: [employer] [address] [place] [address] Commercial Policy Number: [id number] Lifetime Benefit Solution Vane Gonzalez PayID: [facility] [address] [address] [place] [address] Problems Date Description Provider Status Onset: 07/18/2016 Disorder of lung Serena Ellis MD Active Onset: 07/18/2016 Dyspnea Serena Ellis MD Active Onset: 08/09/2017 Localized, primary osteoarthritis Lo Oliva M.D. Active Onset: 09/25/2017 Arthroplasty of knee Lo Oliva M.D. Active Social History Type [...] Form Strength Qnty SIG Indications Ordering Provider Oxycodone-Acetami 09/15/ Active Tablets 5-325mg 90tabs 1-2 tabs Lo nophen 2018 by mouth Pj, every M.D. 4-6 hours as needed for pain Cyclobenzaprine 09/15/ Active Tablets 10mg 30tabs take 1 Lo HCL 2018 tab by Pj, mouth M.D. 2-3 times a day as needed Lovenox 09/04/ Active Solution 40mg/0.4ML 4ml sub Lo 2018 every Pj, once a M.D. day for 4 days ( 09/09-08/25) Trazadone 50MG 08/09/ Active Lo 2018 Seth Oliva Lisinopril-Hydroc 07/18/ Active Tablets 20-25mg 1 tablet Serena hlorothiazide 2017 daily MD Caleb Amlodipine 07/18/ Active Tablets 5mg 30tabs 1 by Serena Besylate 2017 mouth MD Caleb every day Furosemide 07/18/ Active Tablets 40mg 1 tablet Serena 2016 daily MD Caleb Warfarin Sodium 07/18/ Active Tablets 10mg 1 tablet Serena 2016 at night MD Caleb Methadone 5MG / Active Unknown 0000 Lactulose / Active Unknown 0000 Vital Signs Date Vital Result Comment 09/25/2017 Height 72 inches 6'0" Weight 320.00 lb Heart Rate 84 /min BP Systolic Sitting 140 mmHg BP Diastolic Sitting 76 mmHg Respiratory Rate 16 /min Pain Level 0 BMI (Body Mass Index) 43.4 kg/m2 09/04/2017 Height 72 inches 6'0" Weight 320.00 [...] Test Date Test Result H/L Range Note Type & Screen 09/04/2017 Patient Blood Type A Negative 1 Antibody Screen NEGATIVE 1 Urinalysis Profile 09/04/2017 Urine Color Yellow Urine Appearance Clear Urine Specific Davey 1.011 1.010-1.030 Urine pH 7.0 5-9 Urine Urobilinogen Negative Negative Urine Ketones Negative Negative Urine Protein Negative Negative Urine Leukocytes Negative Negative Urine Blood 1+ Negative Urine Nitrite Negative Negative Urine Bilirubin Negative Negative Urine Glucose Negative Negative Urine White Blood Cell Trace(0-5/hpf) Absent Urine Red Blood Cell Trace(0-2/hpf) Absent Urine Bacteria Absent Absent Urine Squamous Epithelial Cell Present Absent Urine Culture And 09/04/2017 Urine Culture SEE RESULT BELOW 2 Sensitivities Laboratory test finding 07/28/2016 Point of Care 89 mg/dL 74-106 3 Glucose 1 PAIN IN LEFT KNEE, EFFUSION, LEFT KNEE, BILATERAL 2 SEE RESULT BELOW Name: WONG GONZALEZ : [address]: Lo Oliva MD Acct: [id number] Unit: [id number] AGE: 62 Location: [facility] Re09/04/17 SEX: M Status: REG REF SPEC: [id number] JOSR: 09/04/17 [facility] DR: Lo Oliva MD REQ: [id number] RECD: 09/04/17 STATUS: PAIGE MARIE DR: Jamir Botello PA-C _ SOURCE: URINE SPDESC: ORDERED: Urine Culture Procedure Result Reported Site Urine Culture Final 09/05/17- 0909 ML No Growth (<1,000 CFU/mL) * ML - Main Lab . END OF REPORT DEPARTMENT OF PATHOLOGY, [address] [place] [address] Srinath Escobar M.D. Director [facility] # [id number] 3 Central Sterile Tech: [id number] Procedures Date CPT Code Description Status 09/14/2017 85732 TKR Total Knee Replacement Completed 09/14/2017 57395 TKR Total Knee Replacement Completed 09/12/2010 11417 EKG, Interpretation Only Completed 11/23/2004 73567 ECHO/Stress Completed 11/23/2004 29214 Treadmill Interp/Report Only Completed 11/23/2004 97557 Stress Test Supervsn W/Out I/R Completed 12/10/2002 91769 ECHO/Stress Completed 12/10/2002 52563 Treadmill Interp/Report Only Completed 12/10/2002 35728 Stress Test Supervsn W/Out I/R Completed Encounters Type Date Location Provider CPT E/M Dx Office Visit 08/09/2017 11:00a [facility] M.D. 52382 M17.0 C.M.A. M21.162 E66.01 M25.561 M25.562 M25.461 M25.462 Office Visit 07/18/2016 7:30a [facility] [address] J98.4 [facility] R06.02 G47.33 F17.210 E66.01 Z68.42 Plan of Care Future Appointment(s):10/23/2017 8:15 am - [facility] - Lo Oliva M.D.Z47.1 Aftercare following joint replacement surgeryFollow up:Follow up: 4 qosslX72.652 Presence of left artificial knee jointNew Therapy:Physical CxxbjglG06.462 Effusion, left kneeM25.562 Pain in left knee
[2017-09-29 11:37] VITALS: BP 120/61
--- NOTE | 2017-09-29 12:17 | RAD ---
INDICATION: LEFT calf pain. Post total knee replacement September 14, 2017. COMPARISON: February 18, 2015 TECHNIQUE: Cancino scale, color Doppler, and spectral analysis of the deep veins of the LEFT lower extremity. Vessel compression, phasicity, and augmentation assessed. REPORT: The LEFT common femoral, great saphenous, profunda femoral, femoral, popliteal, peroneal, and posterior tibial veins are patent. Patency of the RIGHT common femoral vein documented. IMPRESSION: No evidence for LEFT lower extremity deep venous thrombosis.
--- NOTE | 2017-09-29 12:44 | UC ---
Lower Extremity/Ankle HPI - HPI Summary HPI Summary: Patient with history of left total knee replacement 09/14/[address] Oliva. Has been getting physical therapy and doing well. Incision site is healing well. He comes in complaining of 4 days of left calf tightness/pain. He has a history of right lower extremity DVT and is taking 9 mg of Coumadin daily. He checks his INR at home and says it is therapeutic. 2.[address] Oliva's office and was advised to come here for ultrasound to rule out DVT. Patient denies fever, shortness of breath, chest pain. No swelling or redness of the calf. Was prescribed Percocet and Flexeril postoperatively. He is taking the Percocet 4 times daily and Flexeril once daily. - History of Current Complaint Chief Complaint: UCLowerExtremity Stated Complaint: LEFT LEG PAIN Time Seen by Provider: 09/29/17 11:40 Hx Obtained From: Patient Onset/Duration: Sudden Onset, Gradual Onset, Lasting Days, Still Present Severity Initially: Moderate Severity Currently: Moderate Pain Intensity: 7 Pain Scale Used: 0-10 Numeric Aggravating Factor(s): Other - POSITION Alleviating Factor(s): Rest Able to Bear Weight: Yes - Allergies/Home Medications Allergies/Adverse Reactions: Allergies Allergy/AdvReac Type Severity Reaction Status Date / Time No Known Allergies Allergy Verified 09/29/17 11:27 PMH/Surg Hx/FS Hx/Imm Hx - Additional Past Medical History Additional PMH: RLE DVT Cardiovascular History: Hypertension Respiratory History: COPD Other History Of: Negative For: HIV, Hepatitis B, Hepatitis C, Anticoagulant Therapy - Surgical History Surgical History: Yes Surgery Procedure, Year, and Place: [facility]testinal [facility]. gastric bypass 2001. bilateral shoulders RTC AND TENDON REPAIR. CATARACT REPAIR. August 2017 LEFT knee - Family History Known Family History: Positive: Cardiac Disease, Hypertension, Diabetes - Social History Alcohol Use: None Substance Use Type: None Smoking Status (MU): Heavy Every Day Tobacco Smoker Type: Cigarettes Amount Used/How Often: 1/2 PPD X 40+ YEARS Length of Time of Smoking/Using Tobacco: 43 Years Have You Smoked in the Last Year: Yes When Did the Patient Quit Smoking/Using Tobacco: 03/20/17 Household Exposure Type: Cigarettes - Immunization History Most Recent Influenza Vaccination: none Most Recent Tetanus Shot: 07/27/14 Most Recent Pneumonia Vaccination: HAS NOT HAD Review of Systems Constitutional: Negative Skin: Negative Respiratory: Negative Cardiovascular: Negative Gastrointestinal: Negative Musculoskeletal: Other: - CALF PAIN/CRAMPING All Other Systems Reviewed And Are Negative: Yes Physical Exam Triage Information Reviewed: Yes Appearance: Well-Appearing, No Pain Distress, Well-Nourished Vital Signs: Initial Vital Signs Temp 99.4 F 09/29/17 11:28 Pulse 93 09/29/17 11:28 Resp 18 09/29/17 11:28 BP 120/61 09/29/17 11:28 Pulse Ox 97 09/29/17 11:28 Vital Signs Reviewed: Yes Eyes: Positive: Conjunctiva Clear ENT: Positive: Hearing grossly normal Neck: Positive: Supple Respiratory: Positive: No respiratory distress, No accessory muscle use Cardiovascular: Positive: Pulses Normal Abdomen Description: Positive: Soft Musculoskeletal: Positive: ROM Intact, No Edema, Other: - NO LEFT CALF TENDERNESS. NO PALPABLE CORDS. NO REDNESS OR WARMTH OR SWELLING. EQUIVOCAL HOMANS Neurological: Positive: Alert Psychological: Positive: Age Appropriate Behavior Skin: Positive: Other - SURGICAL INCISION LEFT KNEE C/D/I. HEALING WELL Diagnostics - Radiology LLE US Xray Interpretation: No Acute Changes Radiology Interpretation Completed By: Radiologist Lower Extremity Course/Dx - Course Course Of Treatment: LLE US TODAY NEGATIVE FOR DVT. SPOKE WITH KASHMIR RICHARDS WITH DR. OLIVA'S OFFICE. SHE STATES SHE WILL DISCUSS THE CASE WITH DR. OLIVA AND/OR DANNI MORRISON AND CALL THE PATIENT BACK TODAY TO FURTHER DISCUSS HIS MANAGEMENT. PER MAURICE THEY OFTEN USE FLEXERIL TO HELP WITH LEG CRAMPING. PATIENT REPORTS HE IS ONLY TAKING IT ONCE DAILY BECAUSE HE COULD NOT TELL THAT IT WAS DOING ANYTHING. I ADVISED HIM TO TAKE IT AT LEAST TWICE DAILY UNLESS OTHERWISE INDICATED BY [facility]TH[facility] WHEN HE TALKS WITH THEM LATER TODAY. HE IS TO KEEP HIS FOLLOW-UP APPOINTMENT IN OCTOBER OR MAKE AN EARLIER APPOINTMENT IF HIS SYMPTOMS PERSIST OR WORSEN. - Differential Dx/Diagnosis Provider Diagnoses: LEFT LEG CRAMPING Discharge - Sign-Out/Discharge Documenting (check all that apply): Discharge/Admit/Transfer - Discharge Plan Condition: Stable Disposition: HOME Prescriptions: Cyclobenzaprine TAB* [Flexeril TAB*] 10 mg PO TID PRN #30 tab PRN Reason: Pain Patient Education Materials: Leg Cramps (ED) Referrals: Lo Oliva MD [Medical Doctor] - (KEEP YOUR SCHEDULED FOLLOW-UP) Jamir Botello [Primary Care Provider] - If Needed Additional Instructions: NO DVT ON ULTRASOUND TODAY. UNCLEAR CAUSE OF YOUR CALF CRAMPING. STAY WELL HYDRATED. CONTINUE PHYSICAL THERAPY. MAURICE FROM DR. OLIVA'S OFFICE WILL BE CALLING YOU TODAY TO FURTHER DISCUSS YOUR MANAGEMENT. TAKE THE FLEXERIL TWICE DAILY TO SEE IF THIS HELPS. - Billing Disposition and Condition Condition: STABLE Disposition: Home
== END 2017-09-29 12:59 | disposition home or self-care (01) ==
LOC: UCCORT 11:01
DX: R25.2 Cramp and spasm (principal); Z96.652 Presence of left artificial knee joint; F17.210 Nicotine dependence, cigarettes, uncomplicated; I10 Essential (primary) hypertension
CPT/HCPCS: 99212; G0463

== ENCOUNTER 2018-10-30 12:57 | Inpatient (IN) | payer OTHER, MEDICARE ==
[2018-10-22 13:26] VITALS: BP 178/81
--- NOTE | 2018-10-22 19:11 | HP ---
PREOPERATIVE HISTORY AND PHYSICAL EXAMINATION: DATE OF ADMISSION/SURGERY: 11/01/18 DATE OF OFFICE VISIT: 10/22/18 ATTENDING PHYSICIAN: Dr. Lo Oliva.* (DICTATED BY DANNI GUTIERREZ) PROCEDURE: Scheduled right total knee arthroplasty. CHIEF COMPLAINT: Right knee pain. HISTORY OF PRESENT ILLNESS: The patient is a 63-year-old male with complaints of severe right knee pain. He states his pain is about 8/10. He can no longer walk half a block without severe pain. He has pain along both the medial and lateral joint line. He has difficulty with stair climbing, standing, rising from a seated position. In the past, he has tried anti-inflammatories, pain medication, physical therapy, brace wear, and uses a cane. He also tried steroid injections without relief of his pain. He now elected to proceed with right total knee arthroplasty. PAST MEDICAL HISTORY: Significant for morbid obesity, hypertension, prior DVT in the right lower extremity 4 years ago, rotator cuff tears, history of stroke , osteoarthritis, emphysema. PAST SURGICAL HISTORY: Gastric bypass surgery, bilateral rotator cuff repair, cataract surgery, left total knee arthroplasty, vein surgery as outpatient right lower extremity. CURRENT MEDICATIONS: 1. Lisinopril 20 mg p.o. daily. 2. Furosemide 20 mg daily. 3. Coumadin 7 mg daily. 4. Hydrocodone with acetaminophen 7.5 mg/325 mg 1 tab by mouth every 4 hours as needed for pain. 5. Amiodarone 200 mg 1 p.o. daily. ALLERGIES: No known drug allergies. FAMILY HISTORY: Mother with a history of diabetes, heart disease, hypertension , stroke. Dad with a history of prostate cancer. SOCIAL HISTORY: The patient lives with his . 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 He is actively trying to quit cigarettes and is down to 4 cigarettes daily. He denies use of alcohol or recreational drug use. REVIEW OF SYSTEMS: He denies recent loss of consciousness, lightheadedness, dizziness. Denies shortness of breath, chest pain, or palpitations. He does have chronic swelling in the right lower extremity as compared to the left after his DVT. Positive for seasonal allergies. PHYSICAL EXAMINATION GENERAL: He is alert and oriented x3, in no acute distress, pleasant and cooperative, appropriate dress and affect. VITAL SIGNS: Height 72 inches, weight 333. Pulse 60, BP 148/88. HEENT: PERRLA. EOMI. NECK: Supple. LUNGS: Clear to auscultation without wheeze. HEART: Regular rate and rhythm. No murmur auscultated. ABDOMEN: Obese, nontender, nondistended. Normoactive bowel sounds x4. EXTREMITIES: Right lower extremity shows diffuse swelling of the right leg compared to the left. His skin is intact without open areas or excoriations. His calf is nontender and soft. He has a negative Homans sign. His motion is limited from 10 degrees to 90 degrees motion with pain. He has significant patellofemoral crepitus. There is no gross varus or valgus instability. He has positive dorsiflexion strength. His gross sensation is intact to light touch with a 2+ DP pulse. DIAGNOSTIC STUDIES/LAB DATA: Studies reveal advanced osteoarthritis, medial bone- on-bone contact, osteophyte formation, and subchondral sclerosis. IMPRESSION: Advanced osteoarthritis of the right knee. PLAN: Plan is for right total knee arthroplasty with Dr. Oliva on 11/01/18. The patient has been instructed by his roustabout head to stop his Coumadin on 08/12. Postoperatively, they recommend a Lovenox bridge and restart Coumadin postoperatively. The patient states that once he returns home, he will continue with his 7 mg dose and then call Dr. Dominguez' office with INR and adjustments going forward. He will follow up in 10 to [address] Oliva post-operatively. All risks and benefits were fully discussed with Dr. Oliva at his preoperative visit today. All questions were answered. DANNI GUTIERREZ [id number]/[facility] #: [id number] ROGER
[~2018-10-30 12:57] MED LIST changes: +Acetaminophen IV 1GM/100ML * 1,000 MG/100 ML VIAL IVPB ONE; -Buffered Lidocaine 0.9% SYRIN* 5 ML/SYR SYRINGE INTRADERM ONE; +Buffered Lidocaine 1% SYRIN* 1 ML/SYRINGE INTRADERM ONE; +Dexamethasone IV* 4 MG/ML 1 ML (4 MG) IV SLOW PU ONE; -Dexamethasone TAB* 4 MG PO ONE; -DiMENhydriNATE IV* 50 MG/ML VIAL IV PUSH PRN; -Famotidine IV* 10 MG/ML 2 ML (20 mg) IV ONE; +Famotidine TAB* 20 MG PO ONE; -HYDROmorphone INJ* 1 MG/ML CARPUJECT SYRINGE IV PRN; +Lactated Ringers 1000 ML Bag* 1,000 ML IV SCH; +Levalbuterol 0.63MG/3ML NEB* UNIT OF USE INH ONE; -Naloxone* 0.4 MG/ML 1 ML VIAL IV PRN; -Ondansetron INJ* 2 MG/ML VIAL ONE; -PROCHLORPERAZINE INJ 5 MG/ML 2 ML VIAL IV PRN
--- OUTSIDE RECORDS SUMMARY | 2018-10-30 13:03 | XMS REPORT | Continuity of Care Document ---
:1955 External Reference #:[id number] Author Name Kristi Aquino Care Team Providers Name Role Phone Shell Hall F.N.P. Primary Care Physician Unavailable Payers Date Identification Numbers Payment Provider Subscriber Expires: 2016 Policy Number: [id number] [employer], IncShaquille Vane Piper PayID: Suo Yi [address] [place] [address] Policy Number: [id number] Lifetime Benefit Solution Vane Gonzalez PayID: [id number] [address] [place] [address] Effective: 2006 Policy Number: [id number] Medicare Mario Gonzalez Expires: 2018 PayID: [id number] [address] [place] [address] Problems Active Problems Provider Date Disorder of lung Serena Ellis MD Onset: 07/18/2016 Dyspnea Serena Ellis MD Onset: 07/18/2016 Localized, primary osteoarthritis Lo Oliva M.D. Onset: 08/09/2017 Arthroplasty of knee Lo Oliva M.D. Onset: 09/25/2017 Body mass index 40+ - severely obese Aimee Hutchinson NP Onset: Obstructive sleep apnea syndrome Aimee Hutchinson NP Onset: 2017 Atrial fibrillation Aimee Hutchinson NP Onset: 09/14/2017 Social History Type Date Description Comments Sex Unknown Marital Status Lives With Spouse Occupation Disabled ETOH Use Denies alcohol use Tobacco Use Start: Unknown Patient is a current smoker, smokes every day Recreational Drug Use Denies Drug Use Smoking Status Reviewed: 10/22/18 Patient is a current smoker, smokes every day Exercise Type/Frequency Exercises regularly Allergies, Adverse Reactions, Alerts Description No Known Drug Allergies Medications Active Medications SIG Qnty Indications Ordering Provider Date Lisinopril-Hydrochlor 1 tablet daily Serena Caleb, 07/18/2016 othiazide MD 20-25mg Tablets Amlodipine Besylate 1 by mouth every 30tabs Serenagarcia Guerraali, 07/18/2016 5mg day MD Tablets Furosemide 1 tablet daily Serena Caleb, 07/18/2016 40mg Tablets MD Warfarin Sodium 1 tablet at night Serenagarcia Ellis, 07/18/2016 10mg MD Tablets Methadone 5MG Unknown Meloxicam Take One Tablet Unknown 15mg Tablets By Mouth Every Day Hydrocodone-Acetamino Take One Tablet Unknown phen By Mouth Every 6 7.5-325mg Tablets Hours as Needed For Pain Maximum Daily Dose 4 History Medications Oxycodone-Acetaminophen 1-2 tabs by 90tabs Lo Oliva, 09/15/2017 - 5-325mg Tablets mouth every M.D. 10/01/2017 4-6 hours as needed for pain Cyclobenzaprine HCL take 1 tab by 30tabs Lo Oliva, 09/15/2017 - 10mg Tablets mouth 2-3 M.D. 10/01/2017 times a day as needed Lovenox sub every once 4ml Lo Oliva, 09/04/2017 - 40mg/0.4ML Solution a day for 4 M.D. 10/23/2017 days ( 09/09-09/12) Trazadone 50MG Lo Oliva, 08/09/2017 - M.D. 09/30/2018 Lactulose Unknown - 09/30/2018 Vital Signs Date Vital Result Comment 10/22/2018 10:57am Height 72 inches 6'0" Weight 333.00 lb Heart Rate 60 /min BP Systolic 148 mmHg BP Diastolic 88 mmHg Respiratory Rate 18 /min Body Temperature 97.8 F Pain Level 10 BMI (Body Mass Index) 45.2 kg/m2 10/01/2018 7:57am Height 72 inches 6'0" Weight 330.00 lb Heart Rate 72 /min BP Systolic 154 mmHg BP Diastolic 88 mmHg Respiratory Rate 18 /min Pain Level 8 BMI (Body Mass Index) 44.8 kg/m2 11/01/2017 10:59am Height 72 inches 6'0" Weight 315.00 lb Heart Rate 60 /min BP Systolic Sitting 124 mmHg BP Diastolic Sitting 70 mmHg Respiratory Rate 16 /min Pain Level 0 BMI (Body Mass Index) 42.7 kg/m2 10/18/2017 9:05am Height 72 inches 6'0" Weight 315.00 lb BP Systolic 128 mmHg BP Diastolic 62 mmHg Respiratory Rate 20 /min Body Temperature 98.2 F Pain Level 5 BMI (Body Mass Index) 42.7 kg/m2 10/02/2017 9:36am Height 72 inches 6'0" Weight 315.00 lb Heart Rate 100 /min BP Systolic 140 mmHg BP Diastolic 82 mmHg BMI (Body Mass Index) 42.7 kg/m2 09/25/2017 2:01pm Height 72 inches 6'0" Weight 320.00 lb Heart Rate 84 /min BP Systolic Sitting 140 mmHg BP Diastolic Sitting 76 mmHg Respiratory Rate 16 /min Pain Level 0 BMI (Body Mass Index) 43.4 kg/m2 09/04/2017 7:54am Height 72 inches 6'0" Weight 320.00 lb Heart Rate 76 /min BP Systolic 118 mmHg BP Diastolic 70 mmHg BMI (Body Mass Index) 43.4 kg/m2 07/18/2016 7:45am Height 72 inches 6'0" Weight 347.00 lb Heart Rate 72 /min BP Systolic 125 mmHg BP Diastolic 70 mmHg Body Temperature 98.0 F O2 % BldC Oximetry 97 % BMI (Body Mass Index) 47.1 kg/m2 Results Test Date Facility Test Result H/L Range Note Urinalysis Profile 10/22/2018 [facility] Urine Color Yellow [address] [place] [address] [phone] Urine Appearance Clear Urine Specific Nada 1.013 Normal 1.010-1.030 Urine pH 6.0 Normal 5-9 Urine Urobilinogen Negative Negative Urine Ketones Negative Negative Urine Protein 1+(30 mg/dL) Abnormal Negative Urine Leukocytes Negative Negative Urine Blood 1+ Abnormal Negative Urine Nitrite Negative Negative Urine Bilirubin Negative Negative Urine Glucose Negative Negative Urine White Blood Cell Trace(0-5/hpf) Absent Urine Red Blood Cell 1+(3-5/hpf) Abnormal Absent Urine Bacteria Absent Absent Urine Squamous Epithelial Cell Present Abnormal Absent CBC Auto 10/22/2018 [facility] White Blood 6.9 10^3/uL Normal 3.5-10.[address] [place] [address] [phone] Red Blood Count 5.24 10^6/uL Normal 4.18-5.48 Hemoglobin 14.8 g/dL Normal 14.0-18.0 Hematocrit 45 % Normal 42-52 Mean Corpuscular Volume 85 fL Normal 80-94 Mean Corpuscular Hemoglobin 28 pg Normal 27-31 Mean Corpuscular HGB Conc 33 g/dL Normal 31-36 Red Cell Distribution Width 15 % Normal 10-15 Platelet Count 231 10^3/uL Normal 150-450 Mean Platelet Volume 7.9 fL Normal 7.4-10.4 Abs Neutrophils 5.1 10^3/uL Normal 1.5-7.7 Abs Lymphocytes 1.2 10^3/uL Normal 1.0-4.8 Abs Monocytes 0.4 10^3/uL Normal 0-0.8 Abs Eosinophils 0.1 10^3/uL Normal 0-0.6 Abs Basophils 0.1 10^3/uL Normal 0-0.2 Abs Nucleated RBC 0.0 10^3/uL Granulocyte % 74.3 % Lymphocyte % 17.1 % Monocyte % 5.8 % Eosinophil % 1.9 % Basophil % 0.9 % Nucleated Red Blood Cells % 0.1 Inr/Protime 10/22/2018 [facility] Inr 2.04 High 0.82-1.[address] [place] [address] [phone] Laboratory test 10/22/2018 [facility] Partial 44.4 High 26.0- 38.0 [address] [place] [address] Time PTT [phone] Comp Metabolic 10/22/2018 [facility] Sodium 141 mmol/L Normal 135-[address] [place] [address] [phone] Potassium 3.9 mmol/L Normal 3.5-5.0 Chloride 106 mmol/L Normal 101-111 Co2 Carbon Dioxide 27 mmol/L Normal 22-32 Anion Gap 8 mmol/L Normal 2-11 Glucose 90 mg/dL Normal 70-100 Blood Urea Nitrogen 16 mg/dL Normal 6-24 Creatinine 0.85 mg/dL Normal 0.67-1.17 BUN/Creatinine Ratio 18.8 Normal 8-20 Calcium 9.1 mg/dL Normal 8.6-10.3 Total Protein 7.0 g/dL Normal 6.4-8.9 Albumin 4.5 g/dL Normal 3.2-5.2 Globulin 2.5 g/dL Normal 2-4 Albumin/Globulin Ratio 1.8 Normal 1-3 Total Bilirubin 0.40 mg/dL Normal 0.2-1.0 Alkaline Phosphatase 68 U/L Normal 34-104 Alt 15 U/L Normal 7-52 Ast 15 U/L Normal 13-39 Egfr Non- 90.7 >60 Egfr 109.8 >60 4 Type & Screen 10/22/2018 [facility] Patient Blood Type A Negative [address] [place] [address] [phone] Antibody Screen NEGATIVE Urine Culture And 10/22/2018 [facility] Urine Culture SEE RESULT [address] [place] [address] [phone] Urine Culture And 09/04/2017 [facility] Urine Culture SEE RESULT [address] [place] [address] [phone] Urinalysis Profile 09/04/2017 [facility] Urine Color Yellow [address] [place] [address] [phone] Urine Appearance Clear Urine Specific Nada 1.011 Normal 1.010-1.030 Urine pH 7.0 Normal 5-9 Urine Urobilinogen Negative Negative Urine Ketones Negative Negative Urine Protein Negative Negative Urine Leukocytes Negative Negative Urine Blood 1+ Abnormal Negative Urine Nitrite Negative Negative Urine Bilirubin Negative Negative Urine Glucose Negative Negative Urine White Blood Cell Trace(0-5/hpf) Absent Urine Red Blood Cell Trace(0-2/hpf) Absent Urine Bacteria Absent Absent Urine Squamous Epithelial Cell Present Abnormal Absent Type & Screen 09/04/2017 [facility] Patient Blood Type A Negative [address] [place] [address] [phone] Antibody Screen NEGATIVE Laboratory test 07/28/2016 [facility] Point of Care 89 mg/dL Normal 74-106 [address] [place] [address] [phone] 1 11/01 2 Standard intensity warfarin therapeutic range: 2.0-3.0 High intensity warfarin therapeutic range: 2.5-3.5 3 11/01 4 Because ethnic data is not always readily available, this report includes an eGFR for both -Americans and non- Americans. The National Kidney Disease Education Program (NKDEP) does not endorse the use of the MDRD equation for patients that are not between the ages of 18 and 70, are , have extremes of body size, muscle mass, or nutritional status, or are non- or non-. According to the National Kidney Foundation, irrespective of diagnosis, the stage of the disease is based on the level of kidney function: Stage Description GFR(mL/min/1.73 m(2)) 1 Kidney damage with normal or decreased GFR 90 2 Kidney damage with mild decrease in GFR 60-89 3 Moderate decrease in GFR 30-59 4 Severe decrease in GFR 15-29 5 Kidney failure <15 (or dialysis) 5 SEE RESULT BELOW Name: MARIO GONZALEZ : [address]: Lo Oliva MD Acct: [id number] Unit: [id number] AGE: 63 Location: [facility] Re10/22/18 SEX: M Status: REG REF SPEC: [id number] JOSR: 10/22/18-[address]: Lo Oliva MD REQ: [id number] RECD: 10/22/18 STATUS: COMP [facility] DR: Shell Hall ELECTROMECHANICAL ASSEMBLY TECHNICIAN _ SOURCE: URINE SPDESC: ORDERED: Urine Culture COMMENTS: ROSALIND 11/01 QUERIES: Urine Source: Clean Catch Procedure Result Reported Site Urine Culture Final 10/23/18- 1241 ML No Growth (<1,000 CFU/mL) * ML - Main Lab . END OF REPORT DEPARTMENT OF PATHOLOGY, [address] [place] [address] Srinath Escobar M.D. Director [place] # [id number] 6 SEE RESULT BELOW Name: MARIO GONZALEZ : [address]: Lo Oliva MD Acct: [id number] Unit: [id number] AGE: 62 Location: [facility] Re09/04/17 SEX: M Status: REG REF SPEC: [id number] JOSR: 09/04/[address] [facility] [address]: Lo Oliva MD REQ: [id number] RECD: 09/04/17 STATUS: PAIGE MARIE DR: Jamir Botello PA-C _ SOURCE: URINE SPDESC: ORDERED: Urine Culture Procedure Result Reported Site Urine Culture Final 09/05/17- 09 ML No Growth (<1,000 CFU/mL) * ML - Main Lab . END OF REPORT DEPARTMENT OF PATHOLOGY, [address] [place] [address] Srinath Escobar M.D. Director [facility] # [id number] 7 PAIN IN LEFT KNEE, EFFUSION, LEFT KNEE, BILATERAL 8 Director Furniture: [id number] Procedures Date Code Description Status 09/14/2017 81704 TKR Total Knee Replacement Completed 09/14/2017 45076 TKR Total Knee Replacement Completed 09/12/2010 53739 EKG, Interpretation Only Completed 11/23/2004 65135 ECHO/Stress Completed 11/23/2004 80014 Treadmill Interp/Report Only Completed 11/23/2004 54927 Stress Test Supervsn W/Out I/R Completed 12/10/2002 05433 ECHO/Stress Completed 12/10/2002 68785 Treadmill Interp/Report Only Completed 12/10/2002 11343 Stress Test Supervsn W/Out I/R Completed Encounters Type Date Location Provider Dx Diagnosis Office Visit 10/01/2018 [facility] Lo Oliva, M25.561 Pain in right 8:00a [facility] Ligia Ann knee M25.461 Effusion, right knee M17.11 Unilateral primary osteoarthritis, right knee E66.01 Morbid (severe) obesity due to excess calories Z68.41 Body mass index (BMI) 40.0-44.9, adult Office Visit 09/14/2017 [facility] I48.91 Unspecified 8:44a Assoc,ron Hutchinson NP atrial Hospitalists fibrillation G47.33 Obstructive sleep apnea (adult) (pediatric) Z68.41 Body mass index (BMI) 40.0-44.9, adult Office Visit 08/09/2017 11:00a Orthopedic Lo M17.0 Bilateral primary Services Of Seth Oliva osteoarthritis of [facility] 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 at [facility].11/01/2018 3:30 pm - Aj Miller PA-C at [facility].11/01/2018 3:30 pm - DEVAN Meyers at [facility].11/01/2018 3:30 pm - Lo Oliva M.D. at [facility]..10/22/2018 - Lo Oliva M.D.M25.561 Pain in right kneeFollow up:Follow up: 10-14 days post opM25.461 Effusion, right kneeM17.11 Unilateral primary osteoarthritis, right knee
--- OUTSIDE RECORDS SUMMARY | 2018-10-30 13:03 | XMS REPORT | Continuity of Care Document ---
:1955 External Reference #:[id number] Author Name Karina Archer Care Team Providers Name Role Phone Shell Hall F.N.P. Primary Care Physician Unavailable Payers Date Identification Numbers Payment Provider Subscriber Expires: 2016 Policy Number: [id number] [employer], IncShaquille Vane Piper PayID: [employer] [address] [place] [address] Policy Number: [id number] Lifetime Benefit Solution Vane Gonzalez PayID: [id number] [address] [place] [address] Effective: 2006 Policy Number: [id number] Medicare Mario Gonzalez PayID: [id number] [address] [place] [address] Problems Active Problems Provider Date Disorder of [...] Ordering Provider Date Lisinopril-Hydrochlor 1 tablet daily Serenagarcia Guerraali, 07/18/2016 othiazide MD 20-25mg Tablets Amlodipine Besylate 1 [facility] 07/[facility] 5mg day MD Tablets Furosemide 1 tablet daily Serena Caleb, 07/18/2016 40mg Tablets MD Warfarin Sodium 1 [facility], 07/18/2016 10mg MD Tablets Methadone 5MG Unknown [...] Date Facility Test Result H/L Range Note Type & Screen 09/04/2017 [facility] Patient Blood A Negative [address] [place] [address] [phone] Antibody Screen NEGATIVE Urinalysis Profile 09/04/2017 [facility] Urine Color Yellow [address] [place] [address] [phone] Urine Appearance Clear Urine Specific Moore 1.011 N 1.010-1.030 Urine pH 7.0 N 5-9 Urine Urobilinogen Negative Negative Urine Ketones Negative Negative Urine Protein Negative Negative Urine Leukocytes Negative Negative Urine Blood 1+ Abnormal Negative Urine Nitrite Negative Negative Urine Bilirubin Negative Negative Urine Glucose Negative Negative Urine White Blood Cell Trace(0-5/hpf) Absent Urine Red Blood Cell Trace(0-2/hpf) Absent Urine Bacteria Absent Absent Urine Squamous Epithelial Cell Present Abnormal Absent Urine Culture And 09/04/2017 [facility] Urine Culture SEE RESULT [address] [place] [address] [phone] Laboratory test 07/28/2016 [facility] Point of Care 89 mg/dL N 74-106 [address] [place] [address] [phone] 1 PAIN IN LEFT KNEE, EFFUSION, LEFT KNEE, BILATERAL 2 SEE RESULT BELOW Name: MARIO GONZALEZ : [address]: Lo Oliva MD Acct: [id number] Unit: [id number] AGE: 62 Location: [facility] Re09/04/17 SEX: M Status: REG REF SPEC: [id number] JOSR: 09/04/17 [facility] DR: Lo Oliva MD REQ: [id number] RECD: 09/04/17 STATUS: PAIGE MARIE DR: Jamir Botello PA-C _ SOURCE: URINE SPDESC: ORDERED: Urine Culture Procedure Result Reported Site Urine Culture Final 09/05/17- 09 ML No Growth (<1,000 CFU/mL) * ML - Main Lab . END OF REPORT DEPARTMENT OF PATHOLOGY, [address] [place] [address] Srinath Escobar M.D. Director [facility] # [id number] 3 Bowling Ball Mold Assembler: [id number] Procedures Date Code Description Status 09/14/2017 30673 TKR Total Knee Replacement Completed 09/14/2017 49540 TKR Total Knee Replacement Completed 09/12/2010 96226 EKG, Interpretation Only Completed 11/23/2004 80199 ECHO/Stress Completed 11/23/2004 77652 Treadmill Interp/Report Only Completed 11/23/2004 19480 Stress Test Supervsn W/Out I/R Completed 12/10/2002 13247 ECHO/Stress Completed 12/10/2002 65646 Treadmill Interp/Report Only Completed 12/10/2002 68582 Stress Test Supervsn W/Out I/R Completed Encounters Type Date Location Provider Dx Diagnosis Office Visit 10/01/2018 [facility] Lo Oliva, M25.561 Pain in right 8:00a [facility] Ann knee M25.461 Effusion, right knee M17.11 Unilateral primary osteoarthritis, right knee E66.01 Morbid (severe) obesity due to excess calories Z68.41 Body mass index (BMI) 40.0-44.9, adult Office Visit 09/14/2017 [facility] Lilliana I48.91 Unspecified 8:44a Assoc,ron Hutchinson, THERESA atrial Hospitalists fibrillation G47.33 Obstructive sleep apnea [...] [facility] of lung Business Transformation Consultant R06.02 Shortness of breath G47.33 Obstructive sleep apnea (adult) (pediatric) F17.210 Nicotine dependence, cigarettes, uncomplicated E66.01 Morbid (severe) obesity due to excess calories Z68.42 Body mass index (BMI) 45.0-49.9, adult Plan of Treatment Future Appointment(s):11/01/2018 3:30 pm - Aj Miller PA-C at [facility]11/01/2018 3:30 pm - DEVAN Meyers at [facility]11/01/2018 3:30 pm - Lo Oliva M.D. at [facility]10/22/2018 - Lo Oliva M.D.M25.561 Pain in right kneeFollow up:Follow up: 10-14 days post opM25.461 Effusion, right kneeM17.11 Unilateral primary osteoarthritis, right knee
--- OUTSIDE RECORDS SUMMARY | 2018-10-30 13:03 | XMS REPORT | Continuity of Care Document ---
:1955 External Reference #:[id number] Author Name Ema Mesa, MSN, [facility] Address [address] [place] [address] Care Team Providers Name Role Phone Shell Hall, THERESA Care Team Information Systems Administrator Unavailable Shell Hall NP Primary Care Physician Unavailable Payers Date Identification Numbers Payment Provider Subscriber Policy Number: [id number] Lifetime Benefit Solution Vane Nazario Group Number: [id number] PayID: [place] [address] Problems Active Problems Provider Date Essential hypertension Marlon Zhu M.D., [facility] Onset: 07/13/2018 Right bundle branch block Marlon Zhu M.D., [facility] Onset: 07/13/2018 Atrial flutter Marlon Zhu M.D., [facility] Onset: 07/13/2018 Localized, primary osteoarthritis Ke Interiano M.D. Onset: 06/30/2014 Arthralgia of the lower leg Ke Interiano M.D. Onset: 06/30/2014 Family History Date Family Member(s) Observation Comments Father Heart Attack : (2006) Father due to Heart (age 72 Years) Attack : (age 68 Mother due to Congestive pacer and rhythm Years) Heart Failure problems Social History Type Date Description Comments Sex Unknown Marital Status Lives With Diet Patient follows no dietary restrictions Occupation Disabled Work Status Disabled ADL's/IADL's Independent with all ADL's Cigarette Use Pack Years - 39 Tobacco Use Start: Unknown Current Cigarette Smoker 8 cigarettes a day 5-10 Cigarettes Daily Smoking Status Reviewed: 07/13/18 Current Cigarette Smoker 8 cigarettes a day 5-10 Cigarettes Daily ETOH Use Denies alcohol use Tobacco Use Start: Unknown Light tobacco smoker (10 or fewer cigarettes/day) Recreational Drug Use Denies Drug Use Allergies, Adverse Reactions, Alerts Active Allergies Reaction Severity Comments Date NSAIDs 08/07/2014 Ampicillin 08/07/2014 Inactive Allergies NKDA 06/30/2014 Medications Active Medications SIG Qnty Indications Ordering Provider Date Amiodarone HCL 1 tab per day. 30tabs I48.3 Ema Mesa 06/28/2018 200mg Ana, MSN, Tablets [facility] Lisinopril-Hydrochlor 1 po daily Unknown othiazide 20-25mg Tablets Furosemide 1 by mouth every 30tabs Unknown 20mg Tablets day Warfarin Sodium take as directed Unknown 5mg Tablets Warfarin Sodium take as directed Unknown 1mg Tablets Hydrocodone-Acetamino Hall, phen Shell, LAN MANAGER 7.5-325mg Tablets History Medications Lovenox 150 mg SQ bid 8units Marlon Zhu 10/01/2018 - 150mg/ml Solution starting the day Seth Banda, [facility] Unknown after the procedure and continuing until the Inr is 2 or higher Naproxen 1 tab by mouth 60tabs Ke Interiano M.D. 06/30/2014 - 500mg Tablets twice a day Pain 08/07/2014 Amlodipine Besylate Unknown - 5mg Unknown Tablets Gabapentin Unknown - 300mg Capsules Unknown Morphine Sulfate Unknown - 30mg Unknown Tablets Quetiapine Fumarate Unknown - 50mg Unknown Tablets Bupropion 1 tab by mouth Unknown - Hydrochloride ER (SR) daily Unknown 150mg Tablets ER 12HR Pantoprazole Sodium 1 po bid Unknown - 40mg Unknown Tablets DR Metformin HCL take one tablet Unknown - 500mg once daily Unknown Tablets Medications Administered in Office Medication SIG Qnty Indications Ordering Provider Date [facility]jection Depomedrol 40mg/1cc Charley Son, [facility] 07/18/2014 (methylprednisolone acetate) Injection Euflexxa 2mL prefilled Charley Son [facility] 07/04/2014 syringe Injection Depomedrol 40mg/1cc Charley Son [facility] 07/04/2014 (methylprednisolone acetate) Injection Vital Signs Date Vital Result Comment 10/23/2018 1:02pm BP Systolic Sitting Left Arm 152 mmHg BP Diastolic Sitting Left Arm 90 mmHg Heart Rate 64 /min Respiratory Rate 18 /min Height 72 inches 6'0" Weight 335.00 lb BMI (Body Mass Index) 45.4 kg/m2 BSA (Body Surface Area) 2.65 m2 Sharon body weight in kilograms 81 kg O2 % BldC Oximetry 97 % 07/13/2018 11:29am BP Systolic Sitting Right Arm 152 mmHg BP Diastolic Sitting Right Arm 96 mmHg Heart Rate 70 /min Respiratory Rate 18 /min Height 72 inches 6'0" Weight 338.00 lb BMI (Body Mass Index) 45.8 kg/m2 BSA (Body Surface Area) 2.66 m2 Sharon body weight in kilograms 81 kg O2 % BldC Oximetry 94 % Ora 06/28/2018 8:26am Heart Rate 76 /min Respiratory Rate 20 /min Height 72 inches 6'0" Weight 344.00 lb BMI (Body Mass Index) 46.6 kg/m2 BSA (Body Surface Area) 2.68 m2 Sharon body weight in kilograms 81 kg O2 % BldC Oximetry 98 % ra 06/30/2014 8:34am BP Systolic Sitting Left Arm 141 mmHg BP Diastolic Sitting Left Arm 78 mmHg Heart Rate 72 /min Height 70.5 inches 5'10.50" Weight 304.00 lb BMI (Body Mass Index) 43.0 kg/m2 BSA (Body Surface Area) 2.51 m2 Results Test Date Facility Test Result H/L Range Note Lymphocytes # N2N/CCD Import Lymphocytes # (Auto) 1.49 Low 1.8- 7.0 (Auto) 6 Neutrophils # N2N/CCD Import Neutrophils # (Auto) 5.49 1.8- 7.0 (Auto) 6 Inr International N2N/CCD Import In[employer] 2.2 High 0.9 -1.1 Normalized Ratio 6 Normalized Ratio Aspartate Amino N2N/CCD Import Aspartate Amino 16 15-37 Transf (Ast/Sgot) 6 Transf (Ast/Sgot) Laboratory test N2N/CCD Import Alanine 25 12-78 finding 6 Aminotransferase (Alt/SGPT) Albumin 3.7 3.4-5.0 Albumin/Globulin Ratio 0.9 Alkaline Phosphatase 79 45-117 Anion Gap 7 Low 8-16 BUN/Creatinine Ratio 20.0 Basophils # (Auto) 0.05 Low 0.1-0.2 Basophils (%) (Auto) 0.7 0.1-1.0 Blood Urea Nitrogen 18 7-18 Calcium Level 8.7 8.5-10.1 Carbon Dioxide Level 27 21-32 Chloride Level 105 98-107 Creatinine 0.9 0.6-1.3 Eosinophils # (Auto) 0.15 0.0-0.5 Eosinophils (%) (Auto) 2.0 0.0-5.0 Globulin 4.0 1.9-4.3 Glucose Screen 91 74-106 Hematocrit 40.3 38.0-48.0 Hemoglobin 12.8 12.8-17.0 Lymphocytes (%) (Auto) 19.5 17.0-56.0 Mean Corpuscular Hemoglobin 26.8 Low 27.0-33.0 Mean Corpuscular Hemoglobin Concent 31.8 31.7-36.0 Mean Corpuscular Volume 84.5 80.0-96.0 Mean Platelet Volume 9.4 6.6-10.6 Monocytes # (Auto) 0.48 0.0-0.8 Monocytes (%) (Auto) 6.3 0.0-10.0 Neutrophils (%) (Auto) 71.5 33.0-73.0 Platelet Count 298 150-400 Potassium Level 3.4 Low 3.5-5.1 Prothrombin Time 24.1 High 12.0-14.4 RDW Coefficient of Variation 14.9 11.6-15.8 Red Blood Count 4.77 4.20-5.80 Red Cell Distribution Width 44.6 36-51 Sodium Level 139 136-145 Total Bilirubin 0.4 0.2-1.0 Total Protein 7.7 6.4-8.2 White Blood Count 7.7 3.4-10.5 Free Prostate 02/17/2016 N2N/CCD Import Free Prostate 0.62 N/A Specific Antigen Specific Antigen Percent Free 02/17/2016 N2N/CCD Import Percent Free 24.8 . Prostate Specific Prostate Specific Ag Ag Prostate Specific 02/17/2016 N2N/CCD Import Prostate Specific 2.5 0.0- 4.0 Antigen Total Antigen Total Vitamin B12 Level 02/17/2016 N2N/CCD Import Vitamin B12 Level 432 193- 986 Vitamin D 02/17/2016 N2N/CCD Import Vitamin D 20.9 Low 30.0-100.0 25-Hydroxy 25-Hydroxy Stool Occult 12/31/2015 N2N/CCD Import Stool Occult Positive High Negative Blood Blood Activated Partial 12/28/2015 N2N/CCD Import Activated Partial 31.8 23.4- 35.0 Thromboplast Time Thromboplast Time Procedures Date Code Description Status 10/23/2018 94940 EKG-Tracing And Report Completed 07/13/2018 00587 EKG-Tracing And Report Completed 07/11/2018 30558 Echocardiogram Complete Completed 07/11/2018 81443 Event Monitor Inter/Review Only Completed 06/28/2018 57126 EKG-Tracing And Report Completed 07/25/201483642 Asp./Injection major joint Completed 07/18/201485652 Asp./Injection major joint Completed 07/04/201490791 Asp./Injection major joint Completed 06/30/2014 92960 X-Ray Knee Complete W/Obliques & Tunnel And/Or Standing Completed Views Encounters Type Date Location Provider Dx Diagnosis Office Visit 10/23/2018 Cardiology Office Ema Mesa Z01.810 Encounter for 1:00p ANTOINE Perez, preprocedural [facility] cardiovascular examination I48.3 Typical atrial flutter R07.9 Chest pain, unspecified I10 Essential (primary) hypertension I45.10 Unspecified right bundle-branch block Office Visit 07/13/2018 11:40a Cardiology Office Marlon Zhu I48.3 Typical atrial M., M.D., FACC flutter I45.10 Unspecified right bundle-branch block I10 Essential (primary) hypertension Office Visit 06/28/2018 8:20a Cardiology Office Ema Mesa I48.3 Typical atrial ANTOINE Perez, flutter [facility] R07.9 Chest pain, unspecified Office Visit 06/30/2014 8:30a Orthopaedic Office Ke Interiano, 719.46 Pain Joint M.D. Lower Leg 715.16 Osteoarthrosis Localized Prim Lower Leg Plan of Treatment Future Appointment(s):04/25/2019 7:40 am - Ema Mesa, MSN, [facility] at [facility]/23/2018 - Ema Mesa, MSN, FNPZ01.810 Encounter for preprocedural cardiovascular examinationComments:Cleared for surgery as above. He will stop the Coumadin today if the surgery is going to be on or otherwise on the for a surgery date of the . He should restart the Coumadin the night of the procedure but the initiation of the Lovenox per Dr. Oliva thereafter until INR gets back to 2-3.I48.3 Typical atrial flutterComments:No changes.R07.9 Chest pain, unspecifiedComments: Monitor.I10 Essential (primary) hypertensionComments:Monitor.I45.10 Unspecified right bundle-branch blockComments:Monitor.AllFollow up:Follow up visit in six months.
[2018-10-30 13:43] LABS: INR 1.4 (0.82-1.09)
--- NOTE | 2018-12-21 14:17 | DS ---
DISCHARGE SUMMARY: DATE OF ADMISSION: 10/30/18 DATE OF DISCHARGE: 10/30/18 ATTENDING ORTHOPEDIC PROVIDER: Dr. Lo Oliva.* (DICTATED BY DANNI LOVE) HISTORY: The patient is a 63-year-old male, who presents to [facility] for a right total knee replacement after years of increasingly severe right knee pain. HOSPITAL COURSE: The patient was admitted to [facility] on 10/30/18 with the intent of Dr. Oliva performing a right total knee replacement, which was canceled due to an INR of 1.40 upon admission to the hospital due to bleeding risk. DISPOSITION: Discharged to home. CONDITION OF THE PATIENT: Stable. PLAN: Going forward, the patient will be rescheduled for surgery later in the week. He will hold his home Coumadin. Upon returning to the hospital, he will need a repeat INR draw with goal below 1.2. DANNI LOVE [id number]/[facility] #: [id number] MTDD
== END 2018-10-30 14:10 | disposition home or self-care (01) | DRG 351 ==
LOC: AA 12:57
PROVIDERS: ADMIT Orthopaedic Surgery Adult Reconstructive Orthopaedic Surgery; ATTEND Orthopaedic Surgery Adult Reconstructive Orthopaedic Surgery
DX: M17.11 Unilateral primary osteoarthritis, right knee (principal); R79.1 Abnormal coagulation profile; Z53.8 Procedure and treatment not carried out for other reasons
CPT/HCPCS: 36415; 85610

== ENCOUNTER 2018-11-01 07:48 | Inpatient (IN) | payer OTHER, MEDICARE ==
[~2018-11-01 07:48] MED LIST changes: -Acetaminophen IV 1GM/100ML * 1,000 MG/100 ML VIAL IVPB ONE; -Dexamethasone IV* 4 MG/ML 1 ML (4 MG) IV SLOW PU ONE; +Famotidine IV* 10 MG/ML 2 ML (20 mg) IV ONE; -Famotidine TAB* 20 MG PO ONE; -Levalbuterol 0.63MG/3ML NEB* UNIT OF USE INH ONE
[2018-11-01] MEDS ORDERED: ceFAZolin 2 GM in NS PREMIX(*) 2 GM/100 ML BAG IVPB ONE (08:03)
[2018-11-01] MEDS ORDERED: ceFAZolin 1 GM ADVAN(*) 1 GM ADDV.VIAL IVPB ONE (08:03)
[2018-11-01] MEDS ORDERED: Famotidine IV* 10 MG/ML 2 ML (20 mg) ONE (08:04)
[2018-11-01] MEDS ORDERED: Gabapentin CAP(*) 300 MG ONE (08:04)
[2018-11-01] MEDS ORDERED: Buffered Lidocaine 1% SYRIN* 1 ML/SYRINGE INTRADERM ONE (08:23)
[2018-11-01 09:11] LABS: INR 1.15 (0.82-1.09)
[2018-11-01] MEDS ORDERED: fentaNYL* 50 MCG/ML 2 ML VIAL (100 MCG VIAL) ONE ×2 (09:56→12:40)
[2018-11-01] MEDS ORDERED: Midazolam* 1 MG/ML 5 ML VIAL (5 MG) ONE (09:56)
[2018-11-01] MEDS ORDERED: Lidocaine 1% MPF ** 5 ML VIAL ONE (11:07)
[2018-11-01] MEDS ORDERED: ROPIVACAINE 5 MG/ML 30 ML BTL (0.5%) ONE ×2 (11:07→11:19)
[2018-11-01] MEDS ORDERED: Rocuronium* 10 MG/ML VIAL ONE ×2 (11:37→12:50)
[2018-11-01] MEDS ORDERED: KETAMINE HCL* 50 MG/ML 10 ML VIAL ONE (12:00)
[2018-11-01] MEDS ORDERED: Dexamethasone IV* 4 MG/ML 1 ML (4 MG) ONE (12:44)
[2018-11-01] MEDS ORDERED: Ondansetron INJ* 2 MG/ML VIAL ONE (12:44)
[2018-11-01] MEDS ORDERED: Ketorolac INJ* 30 MG/ML 1 ML VIAL ONE (12:44)
[2018-11-01] MEDS ORDERED: hydrALAZINE IV* 20 MG/ML VIAL ONE (12:51)
[2018-11-01] MEDS ORDERED: DiMENhydriNATE IV* 50 MG/ML VIAL IV PUSH PRN (13:31)
[2018-11-01] MEDS ORDERED: Naloxone* 0.4 MG/ML 1 ML VIAL IV PRN (13:31)
[2018-11-01] MEDS ORDERED: Levalbuterol 0.63MG/3ML NEB* UNIT OF USE INH PRN (13:31)
[2018-11-01] MEDS ORDERED: HYDROcodone/ACETAMIN 5-325 MG* 1 TAB PO PRN (13:31)
[2018-11-01] MEDS ORDERED: HYDROmorphone INJ1* 1 MG/ML SYRINGE ONE ×3 (14:31→15:34)
[2018-11-01] MEDS ORDERED: Acetaminophen TAB* 325 MG PO PRN (15:09)
[2018-11-01] MEDS ORDERED: diPHENhydraMINE IV* 50 MG/ML 1 ml VIAL (BENADRYL) IV PRN (15:09)
[2018-11-01] MEDS ORDERED: Magnesium Hydroxide LIQ* 30 ML UDC PO PRN (15:09)
[2018-11-01] MEDS ORDERED: Ondansetron INJ* 2 MG/ML VIAL IV PRN (15:09)
[2018-11-01] MEDS ORDERED: Cyclobenzaprine TAB* 10 MG PO PRN (15:09)
[2018-11-01] MEDS ORDERED: Bisacodyl SUPP* 10 MG SUPP PR PRN (15:09)
[2018-11-01] MEDS ORDERED: Morphine 4 MG/ML VIAL (1 ml) 4 MG/ML VIAL IV PRN (15:09)
[2018-11-01] MEDS ORDERED: oxyCODONE/Acetamin 5/325 MG* TAB PO PRN (15:09)
[2018-11-01] MEDS ORDERED: oxyCODONE TAB* 5 MG TAB PO PRN (15:09)
[2018-11-01] MEDS: HYDROmorphone INJ1* 1 MG/ML SYRINGE IV PRN ×5 (15:10→15:47)
[2018-11-01] MEDS ORDERED: HYDROcodone/ACETAMIN 5-325 MG* 1 TAB ONE (15:14)
[2018-11-01] MEDS ORDERED: Morphine 4 MG/ML VIAL (1 ml) 4 MG/ML VIAL ONE (16:01)
--- NOTE | 2018-11-01 16:16 | PN ---
Progress Note - Progress Note Date of Service: 11/01/18 SOAP: [Pt was seen in the pacu. State he is doing okay. Just feeling a little groggy. He is hopeful to go home today. He is able to df/pf. Complains of mild knee soreness We will continue post op abx and dvt prophylaxis with warfarin. ]
[2018-11-01] MEDS ORDERED: Morphine INJ* 2 MG/ML 1 ML SYRINGE (TWO MG - NEW SYRINGE VERSION) IV PRN (16:58)
[2018-11-01] MEDS ORDERED: Warfarin TAB(*) 6 MG PO ONE (17:00)
[2018-11-01] MEDS: Lactated Ringers 1000 ML Bag* 1,000 ML IV SCH (17:18)
--- NOTE | 2018-11-01 19:01 | OP ---
Operative Report - Blank - Operative Report Date of Operation: 11/01/18 Note: MARIO GONZALEZ 1955 Date of Surgery: 11/01/18 Lo Oliva MD Fertilizer Applicator: Ashwin RAZO did help throughout the procedure with preparation of the knee, wound retraction, manipulation of the knee, and wound closure. Anesthesiologist: Troy Chamberlain MD Anesthesia Type: General Preoperative Diagnosis: Right severe degenerative osteoarthritis of the knee Postoperative Diagnosis: As above Procedure Performed: Right Total Knee Arthroplasty Tourniquet time: 50 minutes Complications: None Specimen: Bone and cartilage from the right knee joint sent to pathology. Hardware Used: Cemented Wall and Nephew total knee hardware was used - For the femur a size 6 right oxinium legion posterior stabilized femoral component, for the tibia a size 6 right sky II tibial baseplate, for the insert a size 9mm 5-6 posterior stabilized articular polyethylene insert, and for the patella a size 32 3-peg all poly patella. Brief History/Indication: MARIO GONZALEZ was known in clinic and had a history of severe right knee pain and swelling. He failed conservative treatment with anti-inflammatories, pain pills, intra-articular injections and physical therapy. He elected to undergo right total knee arthroplasty due to continued pain and decreased quality of life. Radiographs showed severe end stage osteoarthritis of the knee with bone on bone contact. Informed consent was obtained from the patient. He understood the risks of surgery included but were not limited to: bleeding, infection, damage to nearby structures, intraoperative fracture, nerve palsy, failure of the hardware, early loosening, knee stiffness or loss of motion, anesthesia complications, stroke, heart attack , blood clot and . He wished to proceed. Intra-Operative Findings: Intraoperatively the patient was noted to have severe loss of cartilage in all 3 compartments of the knee. Description of the Procedure: MARIO GONZALEZ was identified in the preanesthesia unit. His right knee was marked as the correct operative side. Informed consent was signed and placed in the chart. The patient was taken to the operating room and placed under anesthesia without complication. A lipscomb catheter was placed. A tourniquet was placed on the right thigh. The right lower extremity was prepped and draped in the usual sterile fashion. Preoperative time-out was made to correctly identify the patient, side and site. Appropriate intraoperative antibiotics were given within one hour of incision. Tourniquet was inflated. A midline incision was made and carried sharply down to the extensor mechanism. A new 10 blade was used to make a standard medial parapatellar arthrotomy. The patella was subluxed laterally. Electrocautery was used to dissect soft tissue off the superomedial tibia to the midsagittal plane. The knee was flexed up. The anterior horn of the lateral meniscus and the ACL were sharply incised. A drill was used to enter the distal femur. The intramedullary distal femoral cutting guide was pinned on the distal femur. The oscillating saw was used to make the distal femoral cut. The external rotation guide was pinned on the distal femur and the distal femur was sized to a size 6. The size 6 multi-cutting jig was pinned on the distal femur. The oscillating saw was used to make the appropriate 4 chamfer cuts. Next the PCL was completely released. The extramedullary tibial cutting guide was pinned on the proximal tibia and the oscillating saw was used to make the proximal tibial cut perpendicular to the mechanical axis of the tibia. The bone was carefully removed. The knee was brought out into full extension. The spacer block was placed and had excellent fit with the knee in full extension. The medial and lateral ligaments were well balanced. The flexion and extension gaps were well balanced. The knee was flexed up. Lamina break up worker was placed both medially and laterally. Any remaining meniscus was removed with electrocautery. Curved osteotome was used to remove any posterior osteophytes. The tibial tray and drop bridget were placed and confirmed a satisfactory tibial cut. The size 6 right femoral trial was impacted onto the distal femur. This trial had excellent fit and stability. The box for the posterior stabilized implant was prepared using a box cut osteotome and a reamer. Next a tibial tray trial and 9 mm insert trial was placed. The knee was taken through a range of motion and had full extension to 130 degrees of flexion. Patellofemoral tracking was satisfactory. The patella was inverted and sized to a size 32. Three peg holes were drilled through the size 32 drill guide. The trial patella was placed and the knee was taken through a range of motion. There was satisfactory patellofemoral tracking. All trials were removed. The tibia was subluxed anteriorly and sized to a size 6. The proximal tibial was prepared with a size 6 keel punch. All bony cut surfaces were irrigated with sterile saline and dried. Final implants were cemented into place starting with the tibia, followed by the femur, and last the patella. A 9 mm insert trial was placed and the knee was brought into full extension. Tourniquet was turned down and the knee was copiously irrigated with sterile saline. Electrocautery was used to obtain meticulous hemostasis. Once the cement had fully cured, the insert trial was removed. Any excess cement was removed from around the hardware and capsule. Final insert chosen was a 9 mm posterior stabilized Sky II articular insert size 5-6. Stability of the insert was checked and noted to be stable. The extensor mechanism was closed using number 1 vicryls. The rest of the incision was closed in a layered fashion using 0 and 2-0 vicryls. The skin was closed using 3-0 nylon suture. Sterile xeroform, 4x4s and webril were used to cover the incision. Caleb wrap and cold pack were used to cover the dressings. The patients anesthesia was reversed without difficulty. He was taken to the PACU in stable condition. Intended weight-bearing will be as tolerated.
[2018-11-01] MEDS: ceFAZolin 1 GM ADVAN(*) 1 GM in NS 0.9% 50 ML* 50 ML IVPB SCH (19:32)
[2018-11-01] MEDS: Docusate CAP* 100 MG PO SCH (21:51)
[2018-11-01] MEDS: Magnesium Hydroxide LIQ* 30 ML UDC PO SCH (21:52)
[2018-11-01] MEDS ORDERED: Dextrose 50% Syringe 50 ML* 25 GM/50 ML SYRINGE IV PUSH PRN (22:17)
[2018-11-02] MEDS: oxyCODONE/Acetamin 5/325 MG* TAB PO PRN ×3 (00:08→09:37)
--- NOTE | 2018-11-02 00:11 | CONS ---
CONSULTATION REPORT: DATE OF CONSULT: 11/01/18 PROVIDER: DANNI Lechuga REQUESTING PROVIDER: Lo Oliva MD* REASON FOR CONSULT: Comanagement of chronic medical conditions. HISTORY OF PRESENT ILLNESS: Wong Nazario is a 63-year-old white male with a past medical history significant for atrial fibrillation, history of provoked DVT after orthopedic surgery, obesity, hypertension and a history of CVA and obstructive sleep apnea, noncompliant on CPAP, who presents for elective right total knee arthroplasty. He failed outpatient medical conservative therapy for his right knee osteoarthritis and elected to proceed with right TKA with Dr. Oliva today. Dr. Oliva has requested consult for comanagement of chronic medical conditions from hospitalist service. The patient was evaluated postoperatively on the medical floor. The patient was feeling well. He has mild right knee pain, but feels that is well controlled. He feels tired. Otherwise, he has no complaints. He denies chest pain, difficulty breathing, headaches, visual changes, abdominal pain, nausea, or vomiting. When the patient arrived to the floor, he had hypoxia to 89% on room air and he was on put on 3 L oxygen via nasal cannula, but this occurred while the patient was asleep. PAST MEDICAL HISTORY: 1. Atrial fibrillation. 2. Provoked DVT after orthopedic surgery. 3. Obesity. 4. Hypertension. 5. History of CVA with residual left eye droop. 6. Obstructive sleep apnea, noncompliant with CPAP. 7. History of gastric perforation. 8. Diet-controlled diabetes mellitus type 2, per nursing I would like to note that the patient has history of emphysema documented by the orthopedic team, however, it does not appear the patient has any medications for this. This was not noted on visit with Dr. Ellis in 2017. PAST SURGICAL HISTORY: 1. Bilateral shoulder surgeries. 2. Gastric bypass. 3. Repair of gastric perforation. 4. Cataract surgeries. HOME MEDICATIONS: 1. Warfarin 7 mg p.o. at bedtime. 2. Lisinopril 20 mg p.o. daily. 3. [place] 7.5 mg/325 mg one tab p.o. q.4 hours. 4. Furosemide 20 mg p.o. daily. 5. Amiodarone 200 mg p.o. q.a.m. ALLERGIES: No known drug allergies. FAMILY HISTORY: The patient's mother had a history of diabetes, heart disease, hypertension and stroke. Father had a history of prostate cancer. SOCIAL HISTORY: The patient lives with his . 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 He has been cutting down his cigarette smoking. He has been smoking 4 cigarettes a day lately. Previously, he has a 35 year history of smoking approximately 1 pack per day. Denies alcohol use and drug use. PHYSICAL EXAMINATION: General: Obese white male, lying upright in hospital bed , appearing comfortable, in no acute distress. Eyes: PERRLA, sclerae anicteric. ENT: Mucous membranes moist. Lungs: Clear to auscultation throughout. Cardiac: Regular rate and rhythm without murmurs, rubs, or gallops appreciated. Abdomen: Abdomen is soft, nontender, nondistended. Extremities: Right knee in brace. No clubbing, cyanosis, or edema. Neurologic: The patient is alert and oriented x3. Able to move all extremities. No focal deficits. DIAGNOSTIC STUDIES/LAB DATA: INR today 1.15. PLAN: Wong Nazario is a 63-year-old male with a history of atrial fibrillation, history of provoked deep venous thrombosis, hypertension, history of cerebrovascular accident, obstructive sleep apnea, noncompliant with CPAP, who presents for elective total knee arthroplasty. 1. Atrial fibrillation. The patient is currently rate controlled. Given that it is possible the patient received significant volume of fluid during his surgery today, I have placed him on telemetry to monitor due to risk of potential rapid ventricular rate. The patient has been holding his Coumadin leading up to this surgery. His Coumadin has been restarted and Lovenox is also being used to bridge. Repeat INR will be tomorrow. The patient is currently subtherapeutic. Continue amiodarone. 2. History of obstructive sleep apnea. The patient does not use CPAP at home because he feels uncomfortable wearing it. He desaturated while sleeping on the floor early today. The patient is amenable to trying CPAP tonight. I will order CPAP overnight and if the patient refuses to wear this then nasal cannula will be acceptable. Continuous pulse oximetry ordered for overnight as well. Patient should have outpatient follow up regarding this with Dr. Ellis, as well as this questionable history of COPD. I have no concern for active COPD exacerbation. 3. Hypertension. Continue Lisinopril with holding parameters for systolic pressure less than 110. Continue Lasix. 4. History of stroke. It does not appear that the patient takes a statin and he is anticoagulated on warfarin. 5. Diet-controlled diabetes mellitus type 2. The patient has diet controlled diabetes per nursing; however, this is not found in documentation. It would be of benefit to confirm this with the patient's outpatient office. He has always had normal blood glucoses while he has been at the hospital; however, I will be cautious and order fingersticks and sliding scale lispro p.r.n. I have ordered a carbohydrate consistent diet. 5. DVT prophylaxis: Coumadin restarted and Lovenox. 6. Code status: Patient has a DNR at home and wishes to carry this into the hospital. MOLST has been updated. DISPOSITION: Per Orthopedic Surgery. Thank you for allowing me to participate in the care of this patient. We will follow during this admission. DANNI LECHUGA [id number]/CPS #: [id number]/CPS #: [id number] ROGER
--- NOTE | 2018-11-02 01:34 | CONS ---
CONSULTATION REPORT: ADDENDUM: For diabetes mellitus type 2, I have ordered a carbohydrate consistent diet. The patient has diet controlled diabetes per nursing; however , this is not found in documentation. It would be of benefit to confirm this with the patient's outpatient office. He has always had normal blood glucoses while he has been at the hospital; however, I will be cautious and order fingersticks and sliding scale lispro p.r.n. DANNI STILL [id number]/[facility] #: [id number] [facility]
[2018-11-02] MEDS: ceFAZolin 1 GM ADVAN(*) 1 GM in NS 0.9% 50 ML* 50 ML IVPB SCH ×2 (04:06→12:34)
[2018-11-02] MEDS: Lactated Ringers 1000 ML Bag* 1,000 ML IV SCH (05:42)
[2018-11-02] MEDS: Docusate CAP* 100 MG PO SCH (08:04)
[2018-11-02] MEDS: Magnesium Hydroxide LIQ* 30 ML UDC PO SCH (08:04)
[2018-11-02] MEDS: Insulin LISPRO* 1 UNITS UNIT SUBCUT SCH ×2 (08:13→11:24)
[2018-11-02 08:26] LABS: INR 1.26 (0.82-1.09)
[2018-11-02] MEDS ORDERED: Enoxaparin(*) 40 MG/0.4 ML SYR SUBCUT SCH (09:00)
[2018-11-02] MEDS ORDERED: Vitamin THERAPEUTIC TAB PO SCH (09:00)
[2018-11-02] MEDS ORDERED: Furosemide TAB* 20 MG PO SCH (09:00)
[2018-11-02] MEDS ORDERED: Amiodarone TAB* 200 MG PO SCH (09:00)
[2018-11-02] MEDS ORDERED: Lisinopril TAB* 10 MG PO SCH (09:00)
[2018-11-02 11:25] VITALS: BP 133/56
--- NOTE | 2018-11-02 12:16 | DS ---
Orthopedic Discharge Summary - Discharge Summary Date of Admission:11/01/18 Date of Discharge: 11/02/18 Date of Surgery: 11/01/18 Attending Orthopedic Provider: Dr. Oliva Pre-operative Diagnosis: Degenerative arthritis right knee Operative Procedure: Right total knee arthroplasty Disposition of Patient: home Condition of Patient: stable History: MARIO GONZALEZ is a 63 year old M with years of increasingly severe pain. Patient has failed conservative management and has elected to undergo a right total knee replacement Hospital Course: MARIO was admitted to [facility] on 11/01/18. Patient underwent a right total knee arthroplasty without complication followed by a brief recovery in PACU and transfer to the Short Stay Surgical Unit in stable condition. Our hospitalist service, physical therapy and occupational therapy also participated in this patients care. Post-op day 1: patient was alert and in no acute distress. Dressing was clean, dry and intact. Operative extremity dorsiflexion and plantarflexion intact, sensation intact to light touch distally, DP2+, dressing was changed, incision was clean, dry and intact. Patient was deemed to be medically and orthopedically stable for discharge. Physical therapy goals were met. Home Medications Medication Instructions Recorded Confirmed Type Warfarin TAB(*) [Coumadin TAB(*)] 7 mg PO BEDTIME 02/19/17 10/31/18 History Amiodarone HCl 200 mg PO QAM 10/22/18 10/31/18 History Furosemide 20 mg PO QAM 10/22/18 10/31/18 History Hydrocodone/Acetaminophen [[place] 1 each PO Q4H 10/22/18 10/31/18 History 7.5-325 Tablet] Lisinopril 20 mg PO QAM 10/22/18 10/31/18 History Docusate CAP* [Colace Cap*] 100 mg PO BID cap 11/02/18 Rx Enoxaparin(*) [Lovenox(*)] 40 mg SUBCUT Q24H #3 syringe 11/02/18 Rx oxyCODONE/Acetamin 5/325 MG* 1 - 2 tab PO Q4H PRN #56 tab MDD 8 11/02/18 Rx [Percocet 5/325 TAB*] Discharge Instructions following Orthopedic Surgery: Activity: * Weight Bearing as tolerated * Continue physical therapy and occupational therapy exercises as shown Wound care: * OK to shower on post-op day 3, no bathing, swimming, or submerging wound. * Use gentle soap, pat dry. Cover with gauze, ANGEL LUIS wrap or tape. * Visiting home nurse to do wound checks. Call Orthopedic office for: * Increased drainage * Redness * Increased pain * Fever Go to ER with shortness of breath or chest pain. Diet: * Regular diet * Increase fluids and fiber to prevent constipation. * Continue to use stool softeners, call office if no bowel motion within 48 hours. Medications See Home Medication List in your packet for medications that you should take after discharge. DVT Prophylaxis: Coumadin Dosing: Resume normal 7 mg daily Coumadin dose, self check INR * Dosing: INR blood draw for further dosing instructions. Call orthopedic office if you do not receive dosing instructions. s Lovenox Dosin mg once a day for three days to bridge until INR at least 2.0 on your normal 7 mg dose of Coumadin Pain Control: Percocet Dosin/325 mg 1-2 tabs by mouth every 4-6 hours as needed for pain. Maximum of 8 tabs per day. Please note that Percocet contains Tylenol (acetaminophen). Maximum daily dose of Tylenol is 4000 mg from all sources. Antibiotics are required prior to any dental work. FOLLOW UP: Follow up with Dr. Oliva Within 10-14 days, call for appointment Please call our office with any questions or concerns ([phone])
[2018-11-02] MEDS ORDERED: Warfarin TAB(*) 3 MG PO SCH (17:00)
[2018-11-02] MEDS ORDERED: Warfarin TAB(*) 4 MG PO SCH (17:00)
== END 2018-11-02 14:20 | disposition home health service (06) | DRG 302 ==
LOC: AA 07:48 → SSU 16:41
PROVIDERS: ADMIT Orthopaedic Surgery Adult Reconstructive Orthopaedic Surgery; ATTEND Orthopaedic Surgery Adult Reconstructive Orthopaedic Surgery
PROC: 0SRC069 Replacement of Right Knee Joint with Oxidized Zirconium on Polyethylene Synthetic Substitute, Cemented, Open Approach (ICD-10-PCS; principal; 2018-11-01 12:15)
DX: M17.11 Unilateral primary osteoarthritis, right knee (principal); Z68.42 Body mass index [BMI] 45.0-49.9, adult; E66.01 Morbid (severe) obesity due to excess calories; I10 Essential (primary) hypertension; M19.90 Unspecified osteoarthritis, unspecified site; J43.9 Emphysema, unspecified; Z96.652 Presence of left artificial knee joint; F17.210 Nicotine dependence, cigarettes, uncomplicated; J30.2 Other seasonal allergic rhinitis; M25.761 Osteophyte, right knee; I45.10 Unspecified right bundle-branch block; G47.33 Obstructive sleep apnea (adult) (pediatric); I48.91 Unspecified atrial fibrillation; R09.02 Hypoxemia; H02.402 Unspecified ptosis of left eyelid; E11.9 Type 2 diabetes mellitus without complications; Z66 Do not resuscitate; Z91.19 Patient's noncompliance with other medical treatment and regimen; Z79.01 Long term (current) use of anticoagulants; Z86.718 Personal history of other venous thrombosis and embolism; Z98.84 Bariatric surgery status; Z83.3 Family history of diabetes mellitus; Z82.49 Family history of ischemic heart disease and other diseases of the circulatory system; Z82.3 Family history of stroke; Z80.42 Family history of malignant neoplasm of prostate; Z88.6 Allergy status to analgesic agent; Z88.1 Allergy status to other antibiotic agents; I69.398 Other sequelae of cerebral infarction; Z98.42 Cataract extraction status, left eye; Z98.41 Cataract extraction status, right eye
CPT/HCPCS: 36415; 85610; 88305; 88311; A9270-GY; C1776; G8978-GP-CJ; G8979-GP-CI; J0360; J0690; J1100; J1170; J1650; J1885; J2250; J2270; J2405; J2795; J3010

== ENCOUNTER 2019-06-15 12:40 | Emergency (ER) | payer MEDICARE, OTHER ==
[2019-06-15 13:34] VITALS: BP 159/81
--- NOTE | 2019-06-15 13:40 | UC ---
Respiratory Complaint HPI - HPI Summary HPI Summary: cough x 2 weeks cough is productive with yellow sputum worse with deep breathing, better with rest, having fever, chills , fatigue no sore throat, was seen last week / 6 days ago , is on Doxy for pneumonia - History of Current Complaint Chief Complaint: UCRespiratory Stated Complaint: HEADACHE, COUGH, SOB Time Seen by Provider: 06/15/19 12:46 Hx Obtained From: Patient Onset/Duration: Gradual Onset, Lasting Weeks - 2, Still Present Timing: Constant Severity Initially: Moderate Severity Currently: Moderate Pain Intensity: 7 Character: Cough: Productive Aggravating Factors: Exertion, Deep Breaths Alleviating Factors: Nothing Associated Signs And Symptoms: Positive: Dyspnea, Fever, Chills, URI, Nasal Congestion. Negative: Wheezing, Calf Pain, Calf Swelling - Allergies/Home Medications Allergies/Adverse Reactions: Allergies Allergy/AdvReac Type Severity Reaction Status Date / Time No Known Allergies Allergy Verified 06/15/19 13:05 Home Medications: Home Medications Amiodarone HCl 200 mg PO QAM 10/22/18 [History Confirmed 06/15/19] Furosemide 20 mg PO QAM 10/22/18 [History Confirmed 06/15/19] lisinopriL [Lisinopril] 20 mg PO QAM 10/22/18 [History Confirmed 06/15/19] Atorvastatin* [Lipitor*] 80 mg PO QPM 06/15/19 [History Confirmed 06/15/19] Doxycycline Hyclate 100 mg PO BID 06/15/19 [History Confirmed 06/15/19] Levofloxacin TAB* [Levaquin TAB*] 500 mg PO DAILY #10 tab 06/15/19 [Rx] Mens Vitamin With Fe 1 dose PO QAM 06/15/19 [History Confirmed 06/15/19] Rivaroxaban TAB(*) [Xarelto 20 mg] 20 mg PO DAILY 06/15/19 [History Confirmed ] Tamsulosin CAP* [Flomax CAP*] 0.4 mg PO BEDTIME 06/15/19 [History Confirmed ] PMH/Surg Hx/FS Hx/Imm Hx Endocrine History: Diabetes Cardiovascular History: Cardiac Disease, Hypertension, Atrial Fibrillation Respiratory History: COPD Other History Of: Negative For: HIV, Hepatitis B, Hepatitis C, Anticoagulant Therapy - Surgical History Surgical History: Yes Surgery Procedure, Year, and Place: Intestinal Perforation Repair, 07/31/14, [facility]. gastric bypass 2001. bilateral shoulders RTC AND TENDON REPAIR. CATARACT REPAIR b/l. August 2017 LEFT knee, right knee Summer 2018 - Family History Known Family History: Positive: Cardiac Disease, Hypertension, Diabetes - Social History Alcohol Use: None Substance Use Type: Excessive Caffeine Substance Use Comment - Amount & Last Used: 6 cups coffee daily Smoking Status (MU): Heavy Every Day Tobacco Smoker Type: Cigarettes Amount Used/How Often: 1/2 PPD X 40+ YEARS Length of Time of Smoking/Using Tobacco: 43 Years Have You Smoked in the Last Year: Yes When Did the Patient Quit Smoking/Using Tobacco: 03/20/17 Household Exposure Type: Cigarettes - Immunization History Most Recent Influenza Vaccination: none Most Recent Tetanus Shot: 07/27/14 Most Recent Pneumonia Vaccination: HAS NOT HAD Review of Systems All Other Systems Reviewed And Are Negative: Yes Constitutional: Positive: Fever, Chills, Fatigue Skin: Positive: Negative Eyes: Positive: Negative ENT: Positive: Negative Respiratory: Positive: Shortness Of Breath, Cough Is Patient Immunocompromised?: No Physical Exam Triage Information Reviewed: Yes Appearance: Well-Appearing, No Pain Distress, Well-Nourished Vital Signs: Initial Vital Signs Temp 99.8 F 06/15/19 12:46 Pulse 70 06/15/19 12:46 Resp 22 06/15/19 12:46 BP 159/81 06/15/19 12:46 Pulse Ox 99 06/15/19 12:46 Vital Signs Reviewed: Yes Eye Exam: Normal Eyes: Positive: Conjunctiva Clear ENT: Positive: Normal ENT inspection, Hearing grossly normal, Pharynx normal Neck: Positive: Supple, Nontender, No Lymphadenopathy Respiratory: Positive: No respiratory distress, Crackles - left lowe lungs. Negative: Chest non-tender, No accessory muscle use, Respiratory distress, Accessory muscle use Cardiovascular: Positive: RRR Abdominal Exam: Normal Respiratory Course/Dx - Differential Dx/Diagnosis Provider Diagnosis: Pneumonia Discharge ED - Sign-Out/Discharge Documenting (check all that apply): Patient Departure All imaging exams completed and their final reports reviewed: No Studies - Discharge Plan Condition: Stable Disposition: HOME Prescriptions: Levofloxacin TAB* [Levaquin TAB*] 500 mg PO DAILY #10 tab Patient Education Materials: Pneumonia (ED) Referrals: [facility], SENIOR AUDITOR [Primary Care Provider] - 7 Days Additional Instructions: please go to Ed if getting worse, if having chest pain , short of breath - Billing Disposition and Condition Condition: STABLE Disposition: Home
== END 2019-06-15 13:43 | disposition home or self-care (01) ==
LOC: UCCORT 12:40
DX: J18.9 Pneumonia, unspecified organism (principal); I10 Essential (primary) hypertension; I48.91 Unspecified atrial fibrillation; Z79.01 Long term (current) use of anticoagulants; Z79.2 Long term (current) use of antibiotics; Z79.899 Other long term (current) drug therapy; Z87.891 Personal history of nicotine dependence
CPT/HCPCS: 99212; G0463

== ENCOUNTER 2022-04-07 11:19 | Inpatient (IN) ==
[2022-04-07] MEDS ORDERED: Lactated Ringers 1000 ml BAG 1,000 ML IV ONE (14:45)
[2022-04-07] MEDS ORDERED: Ondansetron 4 mg VIAL 2 MG/ML 2 ml VIAL IV ONE (14:45)
[2022-04-07] MEDS ORDERED: Vancomycin per Pharmacy 1 EA NOTE FOLLOW UP SCH (16:00)
[2022-04-07] MEDS ORDERED: Vancomycin 2,000 MG in NS 0.9% 500 ml BAG 500 ML IVPB ONE (16:00)
[2022-04-07 16:57] LABS: ABS Basophils 0.1 10^3/ul (0-0.2); ABS Eosinophils 0.1 10^3/ul (0-0.6); ABS Lymphocytes 1.2 10^3/ul (1.0-4.8); ABS Monocytes 0.4 10^3/ul (0-0.8); ABS Neutrophils 3.5 10^3/ul (1.5-7.7); Eosinophil % 1.5 %; Hematocrit 33 % (42-52); Hemoglobin 10.4 g/dL (14.0-18.0); Lymphocyte % 23.6 %; Mean Corpuscular HGB Conc 32 g/dL (31-36); Mean Corpuscular Hemoglobin 24 pg (27-31); Mean Corpuscular Volume 76 fL (80-94); Mean Platelet Volume 7.1 fL (7.4-10.4); Platelet Count 283 10^3/uL (150-450); Red Blood Count 4.31 10^6 /uL (4.18-5.48); Red Cell Distribution Width 18 % (10-15); White Blood Count 5.2 10^3/uL (3.5-10.8)
[2022-04-07 17:04] LABS: INR 1.95 (0.88-1.18)
[2022-04-07 17:28] LABS: ALT 26 U/L (7-52); AST 19 U/L (13-39); Albumin 3.4 g/dL (3.2-5.2); Albumin/Globulin Ratio 1.2 (1-3); Alkaline Phosphatase 63 U/L (35-149); Anion Gap 7 mmol/L (2-11); Blood Urea Nitrogen 15 mg/dL (6-24); C Reactive Protein 110.29 mg/L (<8.01); CO2 Carbon Dioxide 27 mmol/L (22-32); Calcium 8.3 mg/dL (8.6-10.3); Chloride 104 mmol/L (101-111); Creatinine, Serum 0.69 mg/dL (0.67-1.17); Globulin 2.8 g/dL (2-4); Glucose 89 mg/dL (70-100); Potassium 3.8 mmol/L (3.5-5.0); Sodium 138 mmol/L (135-145); Total Protein 6.2 g/dL (6.4-8.9); eGFR CKD-EPI 101.4 (>60)
[2022-04-07] MEDS: cefTRIAXone 2 gm/50 mL D5W 2 GM/50 ML BAG IV SCH (17:30)
[2022-04-07 17:50] LABS: Total Iron Binding Capacity 350 mcg/dL (250-450); Transferrin 250 mg/dL (203-362)
[2022-04-07] MEDS ORDERED: Phytonadione Oral Solution 5 MG/25 ML UDC PO ONE ×2 (17:52→18:41)
[2022-04-07 17:54] LABS: % Iron Saturation 6 % (15-55); Iron < 20 ug/dL (50-212); Unsaturated Iron Binding 330 ug/dL
[2022-04-07 18:10] LABS: Ferritin 44.7 ng/mL (24-336)
[2022-04-07 18:24] LABS: Erythrocyte Sed Rate 65 mm/Hr (0-19)
[2022-04-07] MEDS ORDERED: Nicotine Lozenge mini 2 MG LOZNG.MINI MT PRN (18:32)
[2022-04-07] MEDS ORDERED: Nicotine PATCH 14 MG/24 HR PATCH TRANSDERM SCH (19:00)
[2022-04-07] MEDS ORDERED: Acetaminophen IV 1 GM/100ML 1,000 MG/100 ML BAG IV SCH (19:30)
[2022-04-07] MEDS ORDERED: Heparin 5000 UNITS/ML 1 mL VIAL SUBCUT SCH (22:00)
[2022-04-07] MEDS: Acetaminophen IV 1 GM/100ML 1,000 MG/100 ML BAG IV SCH (22:50)
[2022-04-07] MEDS: Nicotine PATCH 14 MG/24 HR PATCH TRANSDERM SCH (22:51)
[2022-04-08] MEDS ORDERED: fentaNYL 250 mcg/5 ml 50 MCG/ML 5 ml VIAL (250 MCG) IV SCH ×2
[2022-04-08] MEDS ORDERED: ceFAZolin VIAL VIAL IVPB SCH
[2022-04-08] MEDS ORDERED: Midazolam 2 mg/2 ml VIAL 1 mg/ml 2 ml VIAL (2 mg) IV SLOW PU SCH
[2022-04-08] MEDS ORDERED: HYDROmorphone 0.5 MG/0.5 ML SYRINGE IV SCH
[2022-04-08] MEDS ORDERED: Ondansetron 4 mg VIAL 2 MG/ML 2 ml VIAL IV SCH
[2022-04-08] MEDS ORDERED: Rocuronium 50 mg VIAL 10 mg/ml 5 ml VIAL (50 mg) IV SCH ×2
[2022-04-08] MEDS ORDERED: Propofol 10 MG/ML 20 ML BTL IV SCH
[2022-04-08] MEDS: Vancomycin 1,250 MG in NS 0.9% 250 ml 250 ML IVPB SCH ×4 (01:32→23:48)
[2022-04-08] MEDS: Acetaminophen IV 1 GM/100ML 1,000 MG/100 ML BAG IV SCH ×3 (05:05→23:30)
[2022-04-08 06:31] LABS: Hematocrit 32 % (42-52); Mean Corpuscular HGB Conc 31 g/dL (31-36); Mean Corpuscular Hemoglobin 24 pg (27-31); Mean Corpuscular Volume 77 fL (80-94); Mean Platelet Volume 7.5 fL (7.4-10.4); Platelet Count 272 10^3/uL (150-450); Red Cell Distribution Width 17 % (10-15); White Blood Count 4.4 10^3/uL (3.5-10.8)
[2022-04-08 06:36] LABS: INR 2.03 (0.88-1.18)
[2022-04-08 06:52] LABS: C Reactive Protein 103.35 mg/L (<8.01); Creatinine, Serum 0.74 mg/dL (0.67-1.17); Potassium 4.1 mmol/L (3.5-5.0); eGFR CKD-EPI 99.3 (>60)
[2022-04-08] MEDS: Nicotine PATCH 14 MG/24 HR PATCH TRANSDERM SCH (10:58)
[2022-04-08] MEDS ORDERED: Vancomycin 1,000 MG VIAL ONE ×3 (11:05→16:39)
[2022-04-08 11:06] LABS: INR 1.67 (0.88-1.18)
[2022-04-08] MEDS ORDERED: Prothrombin Complex Conc. DOSE = Units Factor IX (nine) IV SLOW PU ONE (12:00)
[2022-04-08 13:08] LABS: INR 1.64 (0.88-1.18)
[2022-04-08] MEDS ORDERED: Phytonadione IV (Adult) 5 MG in NS 0.9% 50 ML 50 ML IV ONE (13:45)
[2022-04-08 14:38] LABS: INR 1.56 (0.88-1.18)
[2022-04-08] MEDS: cefTRIAXone 2 gm/50 mL D5W 2 GM/50 ML BAG IV SCH (15:27)
[2022-04-08] MEDS ORDERED: Povidone Iodine 5% OPTH 30 ML BTL ONE ×2 (15:44→16:04)
[2022-04-08] MEDS ORDERED: Vancomycin Trough Check NOTE FOLLOW UP ONE (17:30)
[2022-04-08] MEDS ORDERED: Naloxone 0.4 mg VIAL 0.4 mg/ml 1 ml VIAL IV PRN (20:25)
[2022-04-08] MEDS ORDERED: HYDROmorphone 1 MG/1 ML SYRINGE IV PRN (20:25)
[2022-04-09] MEDS: Acetaminophen IV 1 GM/100ML 1,000 MG/100 ML BAG IV SCH (05:49)
[2022-04-09 06:17] LABS: Hematocrit 31 % (42-52); Hemoglobin 9.8 g/dL (14.0-18.0); Mean Corpuscular HGB Conc 32 g/dL (31-36); Mean Corpuscular Hemoglobin 25 pg (27-31); Mean Corpuscular Volume 78 fL (80-94); Mean Platelet Volume 7.2 fL (7.4-10.4); Platelet Count 279 10^3/uL (150-450); Red Blood Count 3.97 10^6 /uL (4.18-5.48); Red Cell Distribution Width 18 % (10-15); White Blood Count 4.9 10^3/uL (3.5-10.8)
[2022-04-09] MEDS: Vancomycin 1,250 MG in NS 0.9% 250 ml 250 ML IVPB SCH (06:18)
[2022-04-09 06:30] LABS: Calcium 7.7 mg/dL (8.6-10.3); Creatinine, Serum 0.67 mg/dL (0.67-1.17); Magnesium 1.9 mg/dL (1.9-2.7); Potassium 4.1 mmol/L (3.5-5.0); eGFR CKD-EPI 102.3 (>60)
[2022-04-09] MEDS: Nicotine PATCH 14 MG/24 HR PATCH TRANSDERM SCH (09:06)
[2022-04-09] MEDS: cefTRIAXone 2 gm/50 mL D5W 2 GM/50 ML BAG IV SCH (16:10)
[2022-04-10 06:21] LABS: INR 1.56 (0.88-1.18)
[2022-04-10] MEDS: Nicotine PATCH 14 MG/24 HR PATCH TRANSDERM SCH (08:02)
[2022-04-10] MEDS: Vancomycin 1,500 MG in NS 0.9% 250 ml 250 ML IVPB SCH ×2 (11:13→22:36)
[2022-04-10] MEDS: cefTRIAXone 2 gm/50 mL D5W 2 GM/50 ML BAG IV SCH (15:57)
[2022-04-10] MEDS ORDERED: Warfarin DAILY REMINDER **NOTE FOLLOW UP SCH (17:00)
[2022-04-11 06:15] LABS: ABS Eosinophils 0.1 10^3/ul (0-0.6); ABS Lymphocytes 0.7 10^3/ul (1.0-4.8); ABS Monocytes 0.3 10^3/ul (0-0.8); ABS Neutrophils 3.2 10^3/ul (1.5-7.7); Eosinophil % 3.3 %; Hematocrit 28 % (42-52); Hemoglobin 8.8 g/dL (14.0-18.0); Lymphocyte % 15.7 %; Mean Corpuscular HGB Conc 31 g/dL (31-36); Mean Corpuscular Hemoglobin 24 pg (27-31); Mean Corpuscular Volume 77 fL (80-94); Mean Platelet Volume 7.6 fL (7.4-10.4); Platelet Count 273 10^3/uL (150-450); Red Blood Count 3.68 10^6 /uL (4.18-5.48); Red Cell Distribution Width 18 % (10-15); White Blood Count 4.4 10^3/uL (3.5-10.8)
[2022-04-11 06:25] LABS: INR 1.33 (0.88-1.18)
[2022-04-11 06:30] LABS: Anion Gap 8 mmol/L (2-11); Blood Urea Nitrogen 23 mg/dL (6-24); CO2 Carbon Dioxide 26 mmol/L (22-32); Calcium 7.4 mg/dL (8.6-10.3); Chloride 102 mmol/L (101-111); Creatinine, Serum 1.36 mg/dL (0.67-1.17); Glucose 86 mg/dL (70-100); Magnesium 2.1 mg/dL (1.9-2.7); Potassium 4.1 mmol/L (3.5-5.0); Sodium 136 mmol/L (135-145)
[2022-04-11] MEDS: Nicotine PATCH 14 MG/24 HR PATCH TRANSDERM SCH (08:07)
[2022-04-11 09:27] LABS: Erythrocyte Sed Rate 69 mm/Hr (0-19)
[2022-04-11] MEDS ORDERED: Vancomycin Trough Check NOTE FOLLOW UP ONE (10:00)
[2022-04-11] MEDS ORDERED: Acetaminophen IV 1 GM/100ML 1,000 MG/100 ML BAG IV PRN (10:07)
[2022-04-11] MEDS ORDERED: Senna TAB 8.6 mg TAB PO ONE (10:11)
[2022-04-11] MEDS ORDERED: Magnesium Hydroxide LIQ 30 ML UDC PO PRN (10:11)
[2022-04-11 11:41] LABS: Urine Appearance Turbid; Urine Bilirubin Negative (Negative); Urine Blood Negative (Negative); Urine Color Yellow; Urine Glucose Negative (Negative); Urine Ketones Negative (Negative); Urine Nitrite Negative (Negative); Urine Protein Negative (Negative); Urine Specific Gravity 1.009 (1.002-1.030); Urine Urobilinogen Negative (Negative)
[2022-04-11] MEDS: Vancomycin 1,500 MG in NS 0.9% 250 ml 250 ML IVPB SCH (11:51)
[2022-04-11] MEDS ORDERED: Lidocaine 1% MPF 5 ML VIAL INJ ONE (13:14)
[2022-04-11] MEDS: ceFAZolin 2 GM in NS PREMIX 2 GM/100 ML BAG IVPB SCH ×2 (13:17→22:10)
[2022-04-11] MEDS ORDERED: Magnesium Hydroxide LIQ 30 ML UDC PO SCH ×2 (14:00)
[2022-04-11 14:12] LABS: Total Iron Binding Capacity 246 mcg/dL (250-450); Transferrin 176 mg/dL (203-362)
[2022-04-11 14:15] LABS: % Iron Saturation 8 % (15-55); Iron < 20 ug/dL (50-212); Unsaturated Iron Binding 226 ug/dL
[2022-04-11 14:38] LABS: Ferritin 99.5 ng/mL (24-336)
[2022-04-11] MEDS: Magnesium Hydroxide LIQ 30 ML UDC PO SCH ×2 (14:57→22:11)
[2022-04-11] MEDS ORDERED: Enoxaparin 40 MG/0.4 ML SYR SUBCUT ONE (15:00)
[2022-04-11] MEDS ORDERED: Enoxaparin 30 MG/0.3 ML SYR SUBCUT SCH (15:00)
[2022-04-11 16:25] LABS: ABS Eosinophils 0.2 10^3/ul (0-0.6); ABS Lymphocytes 0.8 10^3/ul (1.0-4.8); ABS Monocytes 0.4 10^3/ul (0-0.8); ABS Neutrophils 3.8 10^3/ul (1.5-7.7); Eosinophil % 3.2 %; Hematocrit 28 % (42-52); Hemoglobin 8.8 g/dL (14.0-18.0); Mean Corpuscular HGB Conc 31 g/dL (31-36); Mean Corpuscular Hemoglobin 24 pg (27-31); Mean Corpuscular Volume 77 fL (80-94); Mean Platelet Volume 7.3 fL (7.4-10.4); Platelet Count 276 10^3/uL (150-450); Red Blood Count 3.67 10^6 /uL (4.18-5.48); Red Cell Distribution Width 17 % (10-15); White Blood Count 5.2 10^3/uL (3.5-10.8)
[2022-04-11] MEDS ORDERED: Warfarin per PHARMACY **NOTE FOLLOW UP SCH (18:00)
[2022-04-11] MEDS: Senna TAB 8.6 mg TAB PO SCH (20:18)
[2022-04-12] MEDS: ceFAZolin 2 GM in NS PREMIX 2 GM/100 ML BAG IVPB SCH ×3 (05:24→22:33)
[2022-04-12 06:17] LABS: ABS Eosinophils 0.2 10^3/ul (0-0.6); ABS Lymphocytes 0.7 10^3/ul (1.0-4.8); ABS Monocytes 0.3 10^3/ul (0-0.8); ABS Neutrophils 3.6 10^3/ul (1.5-7.7); Eosinophil % 3.3 %; Hematocrit 27 % (42-52); Hemoglobin 8.6 g/dL (14.0-18.0); Lymphocyte % 13.8 %; Mean Corpuscular HGB Conc 32 g/dL (31-36); Mean Corpuscular Hemoglobin 24 pg (27-31); Mean Corpuscular Volume 76 fL (80-94); Mean Platelet Volume 7.4 fL (7.4-10.4); Platelet Count 299 10^3/uL (150-450); Red Blood Count 3.56 10^6 /uL (4.18-5.48); Red Cell Distribution Width 17 % (10-15); White Blood Count 4.7 10^3/uL (3.5-10.8)
[2022-04-12 06:24] LABS: INR 1.23 (0.88-1.18)
[2022-04-12 06:32] LABS: Calcium 7.6 mg/dL (8.6-10.3); Creatinine, Serum 1.54 mg/dL (0.67-1.17); Potassium 4.6 mmol/L (3.5-5.0); eGFR CKD-EPI 49.1 (>60)
[2022-04-12] MEDS ORDERED: NS 0.9% 500 ml BAG 500 ML IV SCH (07:00)
[2022-04-12] MEDS ORDERED: NS 0.9% 1000 ml BAG 1,000 ML IV SCH ×2 (07:00→19:30)
[2022-04-12] MEDS: Nicotine PATCH 14 MG/24 HR PATCH TRANSDERM SCH (07:40)
[2022-04-12] MEDS: Magnesium Hydroxide LIQ 30 ML UDC PO SCH ×2 (13:11→22:34)
[2022-04-12] MEDS ORDERED: Iron Sucrose 20 MG/ML 5 ML VIAL IV PUSH SCH (14:00)
[2022-04-12] MEDS: Iron Sucrose 200 MG in NS 0.9% 100 ml IVPB SCH (15:31)
[2022-04-12] MEDS: Warfarin DAILY REMINDER **NOTE FOLLOW UP SCH (16:46)
[2022-04-12] MEDS: Senna TAB 8.6 mg TAB PO SCH (20:21)
[2022-04-13] MEDS: ceFAZolin 2 GM in NS PREMIX 2 GM/100 ML BAG IVPB SCH ×3 (05:32→22:17)
[2022-04-13 05:56] LABS: INR 1.23 (0.88-1.18)
[2022-04-13] MEDS: Nicotine PATCH 14 MG/24 HR PATCH TRANSDERM SCH ×2 (08:59→19:45)
[2022-04-13] MEDS: Iron Sucrose 200 MG in NS 0.9% 100 ml IVPB SCH (09:28)
[2022-04-13 09:32] LABS: ABS Eosinophils 0.1 10^3/ul (0-0.6); ABS Lymphocytes 0.5 10^3/ul (1.0-4.8); ABS Monocytes 0.2 10^3/ul (0-0.8); Eosinophil % 3.3 %; Hematocrit 24 % (42-52); Hemoglobin 7.4 g/dL (14.0-18.0); Lymphocyte % 12.9 %; Mean Corpuscular HGB Conc 30 g/dL (31-36); Mean Corpuscular Hemoglobin 24 pg (27-31); Mean Corpuscular Volume 78 fL (80-94); Mean Platelet Volume 7.2 fL (7.4-10.4); Platelet Count 267 10^3/uL (150-450); Red Blood Count 3.13 10^6 /uL (4.18-5.48); Red Cell Distribution Width 17 % (10-15); White Blood Count 3.9 10^3/uL (3.5-10.8)
[2022-04-13 10:08] LABS: Creatinine, Serum 1.2 mg/dL (0.67-1.17); Potassium 3.5 mmol/L (3.5-5.0); eGFR CKD-EPI 66.3 (>60)
[2022-04-13 10:37] LABS: Calcium 6.3 mg/dL (8.6-10.3)
[2022-04-13] MEDS ORDERED: CALCIUM GLUCONATE 1GM/50ML NS 1 GM/50 ML BAG IV ONE (10:53)
[2022-04-13] MEDS: Magnesium Hydroxide LIQ 30 ML UDC PO SCH ×2 (11:29→22:18)
[2022-04-13] MEDS ORDERED: Potassium Chlor 20 meq TAB.ER PO ONE (12:11)
[2022-04-13 17:01] LABS: ABS Eosinophils 0.1 10^3/ul (0-0.6); ABS Lymphocytes 0.6 10^3/ul (1.0-4.8); ABS Monocytes 0.4 10^3/ul (0-0.8); ABS Neutrophils 3.7 10^3/ul (1.5-7.7); Eosinophil % 2.9 %; Hematocrit 28 % (42-52); Hemoglobin 8.4 g/dL (14.0-18.0); Lymphocyte % 11.5 %; Mean Corpuscular HGB Conc 30 g/dL (31-36); Mean Corpuscular Hemoglobin 23 pg (27-31); Mean Corpuscular Volume 77 fL (80-94); Mean Platelet Volume 7.2 fL (7.4-10.4); Platelet Count 291 10^3/uL (150-450); Red Blood Count 3.61 10^6 /uL (4.18-5.48); Red Cell Distribution Width 17 % (10-15); White Blood Count 4.8 10^3/uL (3.5-10.8)
[2022-04-13 17:24] LABS: Calcium 8.1 mg/dL (8.6-10.3); Creatinine, Serum 1.42 mg/dL (0.67-1.17); Potassium 4.1 mmol/L (3.5-5.0); eGFR CKD-EPI 54.2 (>60)
[2022-04-13] MEDS ORDERED: Lactated Ringers 1000 ml BAG 1,000 ML IV ONE (17:47)
[2022-04-13] MEDS: Warfarin DAILY REMINDER **NOTE FOLLOW UP SCH (17:52)
[2022-04-13 18:02] LABS: Magnesium 2.5 mg/dL (1.9-2.7)
[2022-04-13] MEDS: Senna TAB 8.6 mg TAB PO SCH (22:15)
[2022-04-14] MEDS: ceFAZolin 2 GM in NS PREMIX 2 GM/100 ML BAG IVPB SCH (05:53)
[2022-04-14 06:31] LABS: INR 1.33 (0.88-1.18)
[2022-04-14 06:55] LABS: Calcium 7.9 mg/dL (8.6-10.3); Creatinine, Serum 1.31 mg/dL (0.67-1.17); Potassium 4.2 mmol/L (3.5-5.0); eGFR CKD-EPI 59.7 (>60)
[2022-04-14 07:58] VITALS: BP 130/56
[2022-04-14] MEDS ORDERED: Potassium Chlor 20 meq TAB.ER PO SCH (09:00)
[2022-04-14] MEDS: Iron Sucrose 200 MG in NS 0.9% 100 ml IVPB SCH (09:01)
[2022-04-14] MEDS: Nicotine PATCH 14 MG/24 HR PATCH TRANSDERM SCH (09:05)
== END 2022-04-14 11:15 | disposition home or self-care (01) | DRG 486 ==
LOC: ED 11:19 → SUATTDRO 17:05 → EDHOLD 17:05 → SSU 19:11
PROVIDERS: ADMIT Hospitalist; ATTEND Internal Medicine

== ENCOUNTER 2022-07-25 08:39 | Inpatient (IN) ==
[2022-07-25] MEDS ORDERED: Senna TAB 8.6 mg TAB PO PRN (11:40)
[2022-07-25] MEDS ORDERED: Magnesium Hydroxide LIQ 30 ML UDC PO PRN (11:40)
[2022-07-25] MEDS ORDERED: Lactulose 30 ml UDC PO PRN (11:50)
[2022-07-25] MEDS: Oxacillin 2 GM in NS 0.9% 100 ml BAG 100 ML IVPB SCH ×3 (14:39→22:26)
[2022-07-26] MEDS: Oxacillin 2 GM in NS 0.9% 100 ml BAG 100 ML IVPB SCH ×6 (01:24→23:03)
[2022-07-26 06:36] LABS: Hemoglobin 7.9 g/dL (13.2-16.3)
[2022-07-26 06:52] LABS: INR 1.4 (0.88-1.18)
[2022-07-27] MEDS: Oxacillin 2 GM in NS 0.9% 100 ml BAG 100 ML IVPB SCH ×6 (02:42→21:55)
[2022-07-27 05:47] LABS: ABS Eosinophils 0.1 10^3/uL (0.0-0.5); ABS Monocytes 0.3 10^3/uL (0.0-1.1); ABS Neutrophils 2.5 10^3/uL (1.5-7.6); Eosinophil % 2.6 %; Hematocrit 25.1 % (38-53); Hemoglobin 8.2 g/dL (13.2-16.3); Lymphocyte % 25.8 %; Mean Corpuscular Hemoglobin 26.5 pg (27-33); Mean Corpuscular Hgb Conc 32.7 g/dL (31-36); Mean Platelet Volume 6.9 fL (7.5-11.2); Platelet Count 333 10^3/uL (150-450); Red Cell Distribution Width 17.6 % (12-17)
[2022-07-27 05:56] LABS: INR 1.69 (0.88-1.18)
[2022-07-27 06:34] LABS: Albumin 2.7 g/dL (3.2-5.2); Calcium 7.7 mg/dL (8.6-10.3); Potassium 3.7 mmol/L (3.5-5.0); Total Bilirubin 0.5 mg/dL (0.2-1.0)
[2022-07-27 06:40] LABS: Albumin/Globulin Ratio 1.1 (1-3); Creatinine, Serum 0.78 mg/dL (0.67-1.17); Globulin 2.4 g/dL (2-4); Total Protein 5.1 g/dL (6.4-8.9); eGFR CKD-EPI 97.1 (>60)
[2022-07-27 08:27] LABS: C Reactive Protein 53.12 mg/L (<8.01)
[2022-07-28] MEDS: Oxacillin 2 GM in NS 0.9% 100 ml BAG 100 ML IVPB SCH ×6 (02:16→22:53)
[2022-07-28 06:41] LABS: INR 2.31 (0.88-1.18)
[2022-07-28] MEDS: oxyCODONE SR 20 mg TAB PO SCH (08:14)
[2022-07-29] MEDS: Oxacillin 2 GM in NS 0.9% 100 ml BAG 100 ML IVPB SCH ×6 (01:49→21:29)
[2022-07-29 06:15] LABS: ABS Eosinophils 0.1 10^3/uL (0.0-0.5); ABS Lymphocytes 0.7 10^3/uL (1.0-4.8); ABS Monocytes 0.2 10^3/uL (0.0-1.1); Eosinophil % 2.5 %; Hematocrit 24.6 % (38-53); Hemoglobin 8.1 g/dL (13.2-16.3); Lymphocyte % 17.8 %; Mean Corpuscular Hemoglobin 26.3 pg (27-33); Mean Corpuscular Hgb Conc 32.9 g/dL (31-36); Mean Corpuscular Volume 79.9 fL (80-97); Mean Platelet Volume 7.2 fL (7.5-11.2); Nucleated Red Blood Cells % 0.1 /100 WBC (0.0-0.4); Platelet Count 331 10^3/uL (150-450); Red Blood Count 3.08 10^6/uL (4.06-5.63); Red Cell Distribution Width 17.1 % (12-17)
[2022-07-29 06:20] LABS: INR 2.92 (0.88-1.18)
[2022-07-29] MEDS: oxyCODONE SR 20 mg TAB PO SCH (09:02)
[2022-07-29] MEDS: Al Hydrox/Mg Hydrox/Simet LIQ 30 ML UDC PO PRN ×2 (14:02→22:17)
[2022-07-30] MEDS: Oxacillin 2 GM in NS 0.9% 100 ml BAG 100 ML IVPB SCH ×6 (01:56→22:30)
[2022-07-30 06:48] LABS: INR 3.35 (0.88-1.18)
[2022-07-30] MEDS: oxyCODONE SR 20 mg TAB PO SCH (08:17)
[2022-07-31] MEDS: Oxacillin 2 GM in NS 0.9% 100 ml BAG 100 ML IVPB SCH ×6 (02:25→22:06)
[2022-07-31 06:36] LABS: INR 3.91 (0.88-1.18)
[2022-07-31] MEDS: oxyCODONE SR 20 mg TAB PO SCH (09:05)
[2022-08-01] MEDS: Oxacillin 2 GM in NS 0.9% 100 ml BAG 100 ML IVPB SCH ×6 (01:20→22:08)
[2022-08-01 05:50] LABS: INR 2.32 (0.88-1.18)
[2022-08-01] MEDS: oxyCODONE SR 20 mg TAB PO SCH (08:12)
[2022-08-02] MEDS: Oxacillin 2 GM in NS 0.9% 100 ml BAG 100 ML IVPB SCH ×6 (01:57→22:02)
[2022-08-02] MEDS: oxyCODONE SR 20 mg TAB PO SCH (07:35)
[2022-08-02] MEDS: Al Hydrox/Mg Hydrox/Simet LIQ 30 ML UDC PO PRN (18:57)
[2022-08-03] MEDS: Oxacillin 2 GM in NS 0.9% 100 ml BAG 100 ML IVPB SCH ×4 (02:00→14:25)
[2022-08-03 06:24] LABS: ABS Basophils 0.1 10^3/uL (0.0-0.1); ABS Eosinophils 0.1 10^3/uL (0.0-0.5); ABS Monocytes 0.3 10^3/uL (0.0-1.1); ABS Neutrophils 2.7 10^3/uL (1.5-7.6); ABS Nucleated RBC 0.01 10^3/ul; Eosinophil % 2.6 %; Hematocrit 27.4 % (38-53); Lymphocyte % 23.7 %; Mean Corpuscular Hgb Conc 32.8 g/dL (31-36); Mean Corpuscular Volume 79.3 fL (80-97); Mean Platelet Volume 7.4 fL (7.5-11.2); Nucleated Red Blood Cells % 0.3 /100 WBC (0.0-0.4); Platelet Count 348 10^3/uL (150-450); Red Blood Count 3.46 10^6/uL (4.06-5.63); Red Cell Distribution Width 17.3 % (12-17); White Blood Count 4.2 10^3/uL (3.6-10.2)
[2022-08-03 06:37] LABS: INR 2.47 (0.88-1.18)
[2022-08-03 07:07] LABS: Albumin 2.8 g/dL (3.2-5.2); Albumin/Globulin Ratio 1.2 (1-3); C Reactive Protein 44.92 mg/L (<8.01); Creatinine, Serum 0.69 mg/dL (0.67-1.17); Globulin 2.4 g/dL (2-4); Potassium 3.7 mmol/L (3.5-5.0); Total Bilirubin 0.4 mg/dL (0.2-1.0); Total Protein 5.2 g/dL (6.4-8.9); eGFR CKD-EPI 100.8 (>60)
[2022-08-03] MEDS: oxyCODONE SR 20 mg TAB PO SCH (07:24)
[2022-08-03 16:20] VITALS: BP 143/80
== END 2022-08-03 16:35 | disposition swing bed (61) | DRG 550 ==
LOC: PMRU 08:57
PROVIDERS: ADMIT Physical Medicine & Rehabilitation; ATTEND Physical Medicine & Rehabilitation

== ENCOUNTER 2022-10-19 10:15 | Inpatient (IN) ==
[2022-10-26] MEDS ORDERED: Lactated Ringers 1000 ml BAG 1,000 ML IV SCH ×2 (06:00→14:00)
[2022-10-26] MEDS ORDERED: Buffered Lidocaine 1% SYRIN 1 ml INTRADERM ONE (06:00)
[2022-10-26] MEDS ORDERED: ceFAZolin *3* GM in NS PREMIX 3 GM/100 ML BAG IV ONE (10:42)
[2022-10-26 11:15] LABS: Rapid COVID-19 Molecular Undetected (Undetected)
[2022-10-26] MEDS ORDERED: Bupivacaine 0.25% EPI 200,000 30 ML SDV ONE (11:44)
[2022-10-26] MEDS ORDERED: Vancomycin 1,000 MG VIAL ONE ×2 (11:44→12:52)
[2022-10-26] MEDS ORDERED: Midazolam 2 mg/2 ml VIAL 1 mg/ml 2 ml VIAL (2 mg) ONE (12:22)
[2022-10-26] MEDS ORDERED: fentaNYL 250 mcg/5 ml 50 MCG/ML 5 ml VIAL (250 MCG) ONE (12:23)
[2022-10-26] MEDS ORDERED: ROPIVACAINE 5 MG/ML 30 ML BTL (0.5%) ONE (12:23)
[2022-10-26] MEDS ORDERED: Lidocaine 2% PF 5 ML VIAL ONE (12:24)
[2022-10-26] MEDS ORDERED: Propofol 10 MG/ML 20 ML BTL ONE (12:24)
[2022-10-26] MEDS ORDERED: Rocuronium 50 mg VIAL 10 mg/ml 5 ml VIAL (50 mg) ONE ×3 (12:25→14:24)
[2022-10-26] MEDS ORDERED: metroNIDAZOLE IV 500 MG/100ML 500 MG/100 ML BAG ONE (12:44)
[2022-10-26] MEDS ORDERED: Magnesium Hydroxide LIQ 30 ML UDC PO PRN (13:46)
[2022-10-26] MEDS ORDERED: Ondansetron 4 mg VIAL 2 MG/ML 2 ml VIAL IV PRN ×2 (13:46→14:23)
[2022-10-26] MEDS ORDERED: Ondansetron ODT 4 mg TAB 4 MG TAB PO PRN (13:46)
[2022-10-26] MEDS ORDERED: Lactulose 30 ml UDC PO PRN (13:46)
[2022-10-26] MEDS ORDERED: fentaNYL 100 mcg/2 ml 50 MCG/ML VIAL ONE ×2 (13:47→17:07)
[2022-10-26] MEDS ORDERED: Morphine 2 MG/ML SYRINGE IV PRN (13:53)
[2022-10-26] MEDS ORDERED: Naloxone 0.4 mg VIAL 0.4 mg/ml 1 ml VIAL IV PRN (14:23)
[2022-10-26] MEDS ORDERED: fentaNYL 100 mcg/2 ml 50 MCG/ML VIAL IV PRN (14:23)
[2022-10-26] MEDS ORDERED: Acetaminophen IV 1 GM/100ML 1,000 MG/100 ML BAG IV PRN (14:23)
[2022-10-26] MEDS ORDERED: HYDROmorphone 1 MG/1 ML SYRINGE IV PRN (14:23)
[2022-10-26] MEDS ORDERED: Sevoflurane BOTTLE ONE (14:32)
[2022-10-26] MEDS ORDERED: HYDROmorphone 0.5 MG/0.5 ML SYRINGE ONE (15:31)
[2022-10-26] MEDS ORDERED: Acetaminophen IV 1 GM/100ML 1,000 MG/100 ML BAG IV ONE (15:34)
[2022-10-26] MEDS ORDERED: Phenylephrine 40 mcg/mL 10mL (400mcg) SYRINGE ONE ×2 (15:42→16:21)
[2022-10-26] MEDS ORDERED: Tranexamic Acid 1,000 MG/10 ML SDV ONE (16:06)
[2022-10-26] MEDS ORDERED: Phenylephrine IV 10 MG/ML 1 ml VIAL ONE (16:25)
[2022-10-26 16:53] LABS: Hematocrit 26.9 % (38-53); Hemoglobin 8.6 g/dL (13.2-16.3); Mean Corpuscular Hemoglobin 23.7 pg (27-33); Mean Corpuscular Hgb Conc 31.9 g/dL (31-36); Mean Corpuscular Volume 74.2 fL (80-97); Mean Platelet Volume 7.7 fL (7.5-11.2); Platelet Count 255 10^3/uL (150-450); Red Blood Count 3.63 10^6/uL (4.06-5.63); Red Cell Distribution Width 18.2 % (12-17)
[2022-10-26] MEDS ORDERED: Bupivacaine 0.5% W/EPI SDV 10 ML VIAL INJ ONE (17:02)
[2022-10-26 18:03] LABS: Anisocytosis 1+; Microcytosis 1+
[2022-10-26 18:06] LABS: ABS Eosinophils 0.1 10^3/uL (0.0-0.5); ABS Lymphocytes 0.9 10^3/uL (1.0-4.8); ABS Monocytes 0.2 10^3/uL (0.0-1.1); ABS Neutrophils 3.8 10^3/uL (1.5-7.6); Eosinophil % 1.2 %; Lymphocyte % 17.8 %
[2022-10-26] MEDS: ceFAZolin 1 GM ADVAN 1 GM in NS 0.9% 50 ML 50 ML IVPB SCH (20:32)
[2022-10-26] MEDS: Magnesium Hydroxide LIQ 30 ML UDC PO SCH (20:32)
[2022-10-27] MEDS ORDERED: Polyethylene Glycol 3350 17 GM PACKET PO PRN (00:01)
[2022-10-27] MEDS: Morphine 10 MG/ML VIAL (1 ml) IV PRN ×2 (03:22→09:48)
[2022-10-27] MEDS: ceFAZolin 1 GM ADVAN 1 GM in NS 0.9% 50 ML 50 ML IVPB SCH ×3 (05:20→21:53)
[2022-10-27 05:55] LABS: Hematocrit 24.6 % (38-53); Hemoglobin 7.9 g/dL (13.2-16.3); Mean Platelet Volume 7.3 fL (7.5-11.2); Platelet Count 216 10^3/uL (150-450)
[2022-10-27 05:58] LABS: INR 1.34 (0.88-1.18)
[2022-10-27 06:09] LABS: Calcium 7.8 mg/dL (8.6-10.3); Creatinine, Serum 0.65 mg/dL (0.67-1.17); Potassium 3.8 mmol/L (3.5-5.0); eGFR CKD-EPI 102.6 (>60)
[2022-10-27] MEDS: Magnesium Hydroxide LIQ 30 ML UDC PO SCH ×2 (07:37→21:20)
[2022-10-27] MEDS: Vitamin THERAPEUTIC TAB PO SCH (07:38)
[2022-10-28] MEDS: ceFAZolin 1 GM ADVAN 1 GM in NS 0.9% 50 ML 50 ML IVPB SCH ×2 (05:24→13:26)
[2022-10-28 06:32] LABS: Hematocrit 22.3 % (38-53); Hemoglobin 7.3 g/dL (13.2-16.3); Mean Platelet Volume 7.8 fL (7.5-11.2); Platelet Count 181 10^3/uL (150-450)
[2022-10-28 06:37] LABS: INR 1.82 (0.88-1.18)
[2022-10-28] MEDS: Vitamin THERAPEUTIC TAB PO SCH (07:58)
[2022-10-28] MEDS: Magnesium Hydroxide LIQ 30 ML UDC PO SCH (07:58)
[2022-10-28 12:50] LABS: Hematocrit 22.4 % (38-53); Hemoglobin 7.2 g/dL (13.2-16.3)
[2022-10-28 14:18] VITALS: BP 139/75
== END 2022-10-28 16:40 | disposition home or self-care (01) | DRG 940 ==
LOC: AA 10-26 10:02 → SSU 10-26 19:55
PROVIDERS: ADMIT Orthopaedic Surgery; ATTEND Orthopaedic Surgery